=== PATIENT | male | born 1955 | race Caucasian/White ===

== ENCOUNTER → 2024-08-19 | Outpatient (CLI) | payer MEDICARE, MEDICAID, SELFPAY ==
--- NOTE | 2024-08-19 10:22 | XR_ITS ---
Examination: Duplex scan of the lower extremity, unilateral left complete Date and time of exam: August 19, 2024 at 1046 hours INDICATIONS: History left leg DVT post surgical thrombectomy one year ago but persistent swelling in the legs one year Technique: Duplex scan of the extremity veins using B-mode/grayscale imaging and Doppler spectral analysis and color flow Attention is directed to internal echogenicity, compression and augmentation involving these veins, color flow assessment, spectral analysis Findings: Major deep venous structures in the extremity demonstrate normal course and caliber. There is no evidence of deep vein thrombosis. Normal color flow and spectral analysis Impression: Negative for DVT..
== END | disposition home or self-care (01) ==
PROVIDERS: PCP Family Medicine; Referring Provider Internal Medicine; Visit Provider Internal Medicine
DX: M79.606 Pain in leg, unspecified (principal)
CPT/HCPCS: 93971

== ENCOUNTER 2024-09-02 14:42 | Inpatient (IN) | payer MEDICARE, MEDICAID, SELFPAY ==
[2024-09-02] VITALS (26 sets, daily range): BP systolic 104–139; BP diastolic 70–93; PULSE 90–157; RESP 8–23; TEMP 36.4–37.4; O2SAT 90–100; BMI 32.8
--- NOTE | 2024-09-02 14:44 | PC.NURSE ---
patient to er via ems from home for seizure at home, was actively seizing upon arrival, gave 4mg Versed IN and 2mg Versed IV, patient on BMV on arrival, Dr. Whaley at bedside, rt at bedside, patient has nasal trumphet in place. New orders received.
--- NOTE | 2024-09-02 14:47 | XR_ITS ---
Examination: AP chest single view Technique one AP portable semiupright chest single view Exam date and time: September 02, 2024 1556 hours Comparison November 14, 2023 INDICATIONS: Chest pain today, hypoxic respiratory failure postintubation FINDINGS: No significant cardiac enlargement Moderate vascular congestion No aspiration pneumonia Endotracheal tube tip 5.5 cm above paula Orogastric tube tip in the stomach satisfactory position Moderate osteopenia Impression: Moderate vascular congestion No aspiration pneumonia Endotracheal tube tip 5.5 cm above paula
--- NOTE | 2024-09-02 14:47 | EKG_ITS ---
[facility] Test Date: 2024-09-02 Pat Name: SANTIAGO TERRAZAS Department: Room: - Gender: Male Four H Agent: : 1955 Requested By: Igor Whaley Order Number: [id number] Reading MD: Igor Whaley Measurements Intervals Sieper Rate: 115 P: TN: QRS: -7 QRSD: 132 T: 41 QT: 358 QTc: 496 Interpretive Statements ATRIAL FLUTTER/TACHYCARDIA WITH RAPID VENTRICULAR RESPONSE INDETERMINATE AXIS RIGHT BUNDLE BRANCH BLOCK [120+ ms QRS DURATION, UPRIGHT V1, 40+ ms S IN I/aVL/V4/V5/V6] POSSIBLE ANTERIOR MYOCARDIAL INFARCTION , PROBABLY OLD [30 ms Q WAVE IN V3/V4, OR R < 0.2 mV IN V4] Compared to ECG 02/18/2024 21:09:47 Indeterminate axis now present Myocardial infarct finding now present Sinus rhythm no longer present Left-axis deviation no longer present /store/S0/[id number]/ecg/[id number].pdf
--- NOTE | 2024-09-02 14:59 | PD.EDSEIZ ---
ED Seizures RME/HPI General Chief Complaint: Seizure Stated Complaint: SEIZURES Time Seen by Provider: 09/02/24 14:47 Arrival date/time: 09/02/24 14:42 RME / HPI RME / HPI Narrative: 68 year old male with history of CAD s/p PCI, hypertension, h/o hemorrhagic stroke 05/2022, seizures presents to the ED BIBA from home for seizure today. Per medics, family on scene reported finding the patient seizing today, duration unknown. State they administered 4mg IN Versed with no change. Given 2mg IV Versed with improvement. Medics report duration of seizure with them was 8 minutes. On arrival to ED patient is postictal and unable to provide any additional history. Related Data Home Medications ?Medication ?Instructions ?Recorded ?Confirmed amlodipine 5 mg tablet 5 mg PO QDAY 11/16/23 09/02/24 atorvastatin 80 mg tablet 80 mg PO QDAY 11/16/23 09/02/24 baclofen 10 mg tablet 10 mg PO BID 11/16/23 09/02/24 carvedilol 6.25 mg tablet 6.25 mg PO BID PRN elevated blood 11/16/23 09/02/24 pressure cenobamate 50 mg (14)-100 mg (14) 50 - 100 tab PO BID 09/02/24 09/02/24 tablets in a dose pack (Xcopri Titration Pack) divalproex 500 mg tablet,extended 1,000 mg PO BID 09/02/24 09/02/24 release 24 hr Previous Rx's ?Medication ?Instructions ?Recorded apixaban 5 mg tablet (Eliquis) 10 mg (2 x 5 mg) PO BID #28 tabs 02/19/24 Allergies Allergy/AdvReac Type Severity Reaction Status Date / Time No Known Allergies Allergy Verified 05/24/23 13:53 Review of Systems Review of Systems ROS Unobtainable: unobtainable due to mental status Past Medical History Past Medical History NEUROLOGIC: Positive Neurological Disorders (Hemmorhagic stroke), Cerebrovascular Accident, Seizures and Paralysis CARDIAC: Positive Cardiac Disorders, Myocardial Infarction, Coronary Artery Disease, Atherosclerotic Heart Disease, Hypercholesterolemia, Edema and Hypertension GASTROINTESTINAL: Positive Gastrointestinal Disorders, Gastrointestinal Bleed and Ulcer MUSCULOSKELETAL: Positive Musculoskeletal Disorders (dvt to left leg) and Degenerative Disk Disease PSYCHO/SOCIAL: Positive Depression Family History FAMILY HISTORY: Positive Family Cardiac Disorders and Family Cancer Surgical History SURGICAL: Positive Cardiac Surgery, Coronary Artery Bypass Graft, Coronary Stent, Cardiac Catheterization, Angiogram and Neurologic Surgery Social History SMOKING STATUS: Unknown if ever smoked SUBSTANCE USE: does not use ED Exam Narrative Physical exam: Physical Exam:? General:?? ? Patient is brought in by EMS with seizures for 8 minutes prior to arrival evidently got 4 mg Versed intranasal and 2 mg IV per EMS report. The vital signs were reviewed. The patient is not arousable with verbal and painful stimuli but immediately falls back to sleep and becomes inattentive. GCS is 3 on arrival. Patient had a spontaneous respirations that were assisted with [id number] and observe for 5 to 7 minutes after arrival but patient had some apneic pauses during this observation period and we felt it best to intubate since he was recently here for [employer] post seizure activity and this past November . O2 sats are low 90s on nasal cannula Head & Scalp:?? ? Normocephalic, atraumatic. Face:?? ? Appears normal and is without lesions, deformity. No apparent trauma Ears:??? Left external pinna appears normal. Right external pinna appears normal. Eyes:?? ? The sclera is anicteric. The Left and Right Orbit/Lid/Conjunctiva appears normal without swelling, discoloration or injection. Nose: ? ? The nose is without deformity, discharge or tenderness; Throat: ? ? Appears normal.? The mucous membranes are pink and moist without exudates, redness or mass seen.? The tongue appears normal. Neck: The neck is supple and no apparent mass or adenopathy. Chest: The chest wall is normal in size and symmetry and has no chest wall tenderness or crepitus. The patient displays adequate ventilator effort without retractions, accessory muscle use. Patient has adequate air movement bilaterally with no wheezes and no rales. ? Cardiovascular: Regular rate and rhythm; No murmurs, rubs, or gallops; Gastrointestinal: The abdomen appears normal.? No obvious hernias or mass. The abdomen is soft and benign, non-distended, with no pain, no guarding and no rebound tenderness.? Bowel sounds are present and normal sounding.? No CVA tenderness. Genitourinary: No apparent injury or trauma. Back/Spine: No apparent injury or trauma Extremities/Musculoskeletal/lymphatic:? ? ? The bilateral upper and lower extremities are warm. There is no evidence of arterial? insufficiency. There is no evidence of venous insufficiency/edema. The patient is obtunded but displays no obvious focal deficits and spontaneously moves bilateral upper and lower extremities with painful or verbal stimuli There is no apparent, injury or trauma. Skin:? The skin is warm, dry and intact.? No rashes. No petechia. No purpura. No abnormal bruising.? The color is appropriate with no cyanosis. Mental status/Psychiatric: Neurologic Mental status is obtunded no further evaluation can be made not arousal to verbal or knows of no arousable to pain. He is clenching his jaw at times. But no tonic-clonic movements are seen. . Course Quality Measures none Orders Category Date Time Status 24 HR Medical Restraints Q2HR Care 09/02/24 15:11 Active Bedside Blood Glucose NOW Care 09/02/24 14:47 Active Equipment Analyst Q1H Care 09/02/24 15:14 Active EKG (ED ONLY) *Do not use* NOW Care 09/02/24 14:47 Completed Jain [Urinary Catheter] QS Care 09/02/24 15:07 Active Insert NG / OG tube NOW Care 09/02/24 15:06 Active Intubation NOW Care 09/02/24 15:06 Completed Intubation NOW Care 09/02/24 15:[address] head/brain wo con Stat Exams 09/02/24 17:06 Taken EKG (ED Only) Stat Exams 09/02/24 14:47 Draft XR chest 1V portable Stat Exams 09/02/24 14:47 Completed Alcohol, Blood Medical Stat Lab 09/02/24 15:07 Completed Ammonia Stat Lab 09/02/24 15:07 Completed B-Type Natriuretic Peptide Stat Lab 09/02/24 15:07 Completed Blood Culture (Lab) Stat Lab 09/02/24 15:42 Received CBC Stat Lab 09/02/24 15:07 Completed Comprehensive Metabolic Panel Stat Lab 09/02/24 15:07 Completed Drug Screen,Urine Stat Lab 09/02/24 15:20 Completed Lactate (Lactic Acid) Stat Lab 09/02/24 15:07 Results Procalcitonin Stat Lab 09/02/24 15:07 Completed Prothrombin Time with INR Stat Lab 09/02/24 15:07 Completed Sputum Culture and Gram Stain Stat Lab 09/02/24 15:07 Received Troponin I Stat Lab 09/02/24 15:07 Completed Type and Screen Stat Lab 09/02/24 15:33 Completed Urinalysis, C/S if Indicated Stat Lab 09/02/24 15:20 Completed Venous Blood Gas Stat Lab 09/02/24 15:07 Completed LORazepam [Ativan Inj] Med 09/02/24 14:49 Discontinued 1 mg IVP X1 ONE LORazepam [Ativan Inj] Med 09/02/24 14:57 Discontinued 2 mg IVP X1 ONE Midazolam/Ns 100 mg Ivpb [Versed Pf Inj in Ns Premix] Med 09/02/24 15:18 Active 100 mg in 100 ml IV 1 mg/hr Propofol Inj [Diprivan Inj] Med 09/02/24 14:57 Discontinued 100 mg IV X1 ONE Propofol Inj [Diprivan Inj] Med 09/02/24 15:09 Discontinued 100 mg IV X1 ONE Sodium Chloride 0.9% 1000 ml [Ns] 2,000 ml Med 09/02/24 14:47 Active IV 150 mls/hr cefTRIAXone/D5w 1gm IV premix [Rocephin/D5w 1gm IV Med 09/02/24 16:19 Discontinued premix] 50 ml IV X1 fentaNYL 2,500 MCG/250 ML BAG [Sublimaze Inj 2,500 MCG/ Med 09/02/24 15:18 Active 250 ML BAG] 2,500 mcg in 250 ml IV 25 mcg/hr levETIRAcetam INJ [Keppra Inj] Med 09/02/24 14:47 Discontinued 1,000 mg IVP X1 ONE Ventilator [Volume Ventilator] Stat RT 09/02/24 15:16 Active Vital Signs Vital signs: Vital Signs Pulse Rate 157 H 09/02/24 14:44 Respiratory Rate 19 09/02/24 14:44 Blood Pressure 121/77 09/02/24 14:44 Pulse Oximetry (%) 90 L 09/02/24 14:44 Oxygen Delivery Method Nasal Cannula 09/02/24 14:44 Procedures -ED Intubation Time out performed: Yes sedative: other (2mg Versed, 200mg Propofol ) Laryngoscope: Mariee ET Tube Size: 8 ET Tube Uncuffed: No Tube Secured Depth (cm): 22 Tube Secured Location: other (gum) Tube Placement Confirmation: visualized tube passing through cords, equal breath sounds bilaterally, no breath sounds over epigastrium and confirmation by capnometry Patient Tolerated Procedure: well and no complications Intubation Complications: none Seizure MDM Narrative MDM Narrative:: As mentioned above patient was intubated with an 8.0 tube after period of observation to see if he is in a wake up from his seizures. Because of some apneic pauses we decided intubate which was done see the procedure note but he was intubated on the first attempt with a 0.0 tube capnometry response was positive. Breath sounds were heard bilaterally. NG tube was then placed later by a nurse with good position on chest x-ray. The ET tube is also in adequate position at 21 at the corner of the mouth. Because of a history of status epilepticus stroke as the cause of seizures in the past workup for altered mental status was ordered and is pending at 1608 hrs. Nonetheless I contacted Dr. Villalta a critical care doctor discussed the case and let her know the patient on need to be admitted assuming there is no head bleed. At 1608 hrs. the blood gas came back with a pH of 722 pCO2 of 57 consistent with a respiratory acidosis. PT/INR within normal limits. White count is 10.1 hemoglobin is 14.9 lactic acid came back elevated at 4.7. UA and comprehensive metabolic panel is still pending. At [address] is still pending also. At [address] is back but no forceful report by my read shows obvious cephalin malacia from previous hemorrhagic stroke but no obvious acute bleed is present on today's CT. Dr. Villalta was consulted earlier and sent resident down to evaluate this patient pending completion of the workup. Because of the altered mental status post status epilepticus and postictal phase with elevated lactic acid and metabolic acidosis which is probably all presumably secondary to seizures nonetheless cannot exclude an aspiration syndrome and/or infection so we will give a single dose of Rocephin at this time. At [address] Villalta is in the department seeing her patients and will be accepting this patient. Patient is tolerated the ventilator quite well. At this time we do not feel this patient is a sepsis alert as it is clearly status epilepticus with a elevated lactic acid and a second lactic acid is pending and Dr. Villalta is fully aware of this issue. Patient data External records reviewed:: [facility] previous records (I reviewed admission from 11/13/2023 through 11/18/2023 for seizures) and EMS form Clinical information provided by:: EMS Social determinants that could affect healthcare access:: none Patient has the following chronic illnesses:: CAD s/p PCI, hypertension, h/o hemorrhagic stroke 05/2022, seizures How is presenting disease/condition affected by chronic disease/condition?: exacerbated by Evaluation data The following diagnostics were reviewed and interpreted by me:: lab results, radiology exam(s) and EKG tracing(s) (Atrial flutter, rate 115, right bundle branch block) Lab and/or radiology exams considered but not ordered:: None Interpretation Summary: Ordering Physician: Igor Whaley MD Date of Service: 09/02/24 Procedure(s): XR chest 1V portable Accession Number(s): [id number] cc: Joyce Leo; Igor Whaley MD; John Jonas MD~ Examination: AP chest single view Technique one AP portable semiupright chest single view Exam date and time: September 02, 2024 1556 hours Comparison November 14, 2023 INDICATIONS: Chest pain today, hypoxic respiratory failure postintubation FINDINGS: No significant cardiac enlargement Moderate vascular congestion No aspiration pneumonia Endotracheal tube tip 5.5 cm above paula Orogastric tube tip in the stomach satisfactory position Moderate osteopenia Impression: Moderate vascular congestion No aspiration pneumonia Endotracheal tube tip 5.5 cm above paula Dictated By: John Jonas MD Signed By: <Electronically signed by John Jonas MD in OV> 09/02/24 1605 Medications / Prescriptions Medications or Prescriptions considered but not ordered:: None Medication administrations:: Medication Administration History Sodium Chloride (Ns) 2,000 mls @ 150 mls/hr IV .[id number] ONE Stop: 09/03/24 04:06 Last Admin: 09/02/24 15:02 Dose: 150 mls/hr Documented By: JEFF Fentanyl Citrate (Sublimaze Inj 2,500 Mcg/250 Ml Bag) 2,500 mcg in 250 mls @ 2.5 mls/hr IV .Q24H PRN; Protocol PRN Reason: PER PROTOCOL Stop: 09/07/24 15:17 Last Titration: 09/02/24 17:27 Dose: 25 mcg/hr, 2.5 mls/hr Documented By: Titration: 09/02/24 16:27 Dose: 25 mcg/hr, 2.5 mls/hr Documented By: Admin: 09/02/24 15:27 Dose: 25 mcg/hr, 2.5 mls/hr Documented By: JEFF Comments: Patient restless upon starting gtt Midazolam HCl (Versed Pf Inj In Ns Premix) 100 mg in 100 mls @ 1 mls/hr IV .Q24H PRN; Protocol PRN Reason: PER PROTOCOL Stop: 09/07/24 15:17 Last Titration: 09/02/24 17:33 Dose: 1 mg/hr, 1 mls/hr Documented By: Titration: 09/02/24 16:33 Dose: 1 mg/hr, 1 mls/hr Documented By: Admin: 09/02/24 15:33 Dose: 1 mg/hr, 1 mls/hr Documented By: JEFF Comments: Patient restlless upon starting gtt Discontinued Medications Ceftriaxone Sodium/Dextrose (Rocephin/D5w 1gm Iv Premix) 50 mls @ 100 mls/hr IV X1 ONE Stop: 09/02/24 16:48 Last Infusion: 09/02/24 17:00 Dose: Infused Documented By: Admin: 09/02/24 16:28 Dose: 100 mls/hr Documented By: JEFF Levetiracetam (Levetiracetam Inj 100 Mg/Ml Vial 5ml) 1,000 mg IVP X1 ONE Stop: 09/02/24 14:48 Last Admin: 09/02/24 15:02 Dose: 1,000 mg Documented By: JEFF Lorazepam (Lorazepam 2 Mg/Ml Vial) 1 mg IVP X1 ONE Stop: 09/02/24 14:50 Last Admin: 09/02/24 15:19 Dose: Not Given Documented By: JEFF Non-Admin Reason: Cancelled by Provider Lorazepam (Lorazepam 2 Mg/Ml Vial) 2 mg IVP X1 ONE Stop: 09/02/24 14:58 Last Admin: 09/02/24 15:04 Dose: 2 mg Documented By: JEFF Propofol (Propofol Inj 10 Mg/Ml Vial 20 Ml) 100 mg IV X1 ONE Stop: 09/02/24 14:58 Last Admin: 09/02/24 15:05 Dose: 100 mg Documented By: JEFF Propofol (Propofol Inj 10 Mg/Ml Vial 20 Ml) 100 mg IV X1 ONE Stop: 09/02/24 15:10 Last Admin: 09/02/24 15:11 Dose: 100 mg Documented By: KM See above Consultations Consultation(s) initiated? (list below): Yes Consultation #1 (Physician, Specialty, Details): I spoke with assistant professor of biochemistry Dr. Villalta. Discussed patients PMHx, HPI, ED course, exam findings, labs, and radiology results as noted above. Diagnosis Seizure Differential Diagnosis: intractable seizure disorder, focal seizure, generalized seizure, epileptic seizure and status epilepticus Most likely diagnosis given after review of the tests above:: Status epilepticus Acute respiratory insufficiency Respiratory acidosis Elevated lactic acid level Admission Indicated Admission indicated?: indicated Admission Request Was there a request for admission?: Yes Admission Attestation Admission request attestation: Discussed case with [] from Hospitalist service regarding admission. Discussed patients ED course, exam findings, labs, and radiology results. The Hospitalist [agrees,declines] to accept the patient for admission. Disposition Plan Disposition Plan: Admit Critical Care Time Critical Care Time Critical Care Time: Yes Total Critical Care Time (min.): 45 Attestation: The high probability of sudden, clinically significant deterioration in the patient's condition required the highest level of my preparedness to intervene urgently. The services I provided to this patient were to treat and/or prevent clinically significant deterioration. Services included the following: chart data review, reviewing nursing notes and/or old charts, documentation time, data virtualization consultant collaboration regarding findings and treatment options, medication orders and management, direct patient care, vital sign assessments and ordering, interpreting and reviewing diagnostic studies and lab tests. Aggregate critical care time includes only time during which I was engaged in work directly related to the patient's care, as described above, whether at bedside or elsewhere in the Emergency Department. It did not include time spent performing other reported procedures or the services of residents, students, nurses or physician assistants. Discharge Plan Plan Patient Disposition: Admit Acute Care w/in Hospital Disposition Comment: ICU Dr. Villalta Prescriptions/Referrals Prescriptions/Med Rec: No Action atorvastatin 80 mg tablet 80 mg PO QDAY Patient Comments: TAKE 1 TABLET BY MOUTH EVERY DAY carvedilol 6.25 mg tablet 6.25 mg PO BID PRN (Reason: elevated blood pressure) Patient Comments: TAKE 1 TABLET BY MOUTH TWICE A DAY amlodipine 5 mg tablet 5 mg PO QDAY Patient Comments: TAKE 1 TABLET BY MOUTH EVERY DAY baclofen 10 mg tablet 10 mg PO BID Eliquis 5 mg tablet 10 mg PO BID MDD 4 Qty: 28 0RF divalproex 500 mg tablet extended release 24 hr 1,000 mg PO BID Xcopri Titration Pack 50 mg (14)- 100 mg (14) tablets,dose pack 50 - 100 tab PO BID Patient Comments: TAKE BY ORAL ROUTE ONCE DAILY PER PACKAGE DIRECTIONS Referrals: Joyce Leo FNP [Primary Care Provider] - In 1 week Problem List Clinical Impression: Status epilepticus, Acute respiratory insufficiency, Respiratory acidosis, Elevated lactic acid level, Endotracheally intubated Patient/Caregiver Discharge Instructions Print Language: Pashto Stand Alone Forms: Radha Award Info., Patient Portal Info Letter
[2024-09-02] MEDS: SODIUM CHLORIDE 0.9% 1000 ML 2,000 ML 150 ML IV (15:02)
[2024-09-02] MEDS: levETIRAcetam INJ 100 MG/ML VIAL 5ML 1000 MG IVP (15:02)
[2024-09-02] MEDS: LORazepam 2 MG/ML VIAL IVP (15:04)
[2024-09-02] MEDS: PROPOFOL INJ 10 MG/ML VIAL 20 ML 100 MG IV ×2 (15:05→15:11)
--- NOTE | 2024-09-02 15:05 | PC.NURSE ---
Dr. Whaley and rt at bedside to intubate patient
[2024-09-02 15:14] LABS: Base Excess, Venous -6 (-3-3); O2 Saturation, Venous 92 % (96-97); PCO2, Venous 57 mmHg (36-56); PO2, Venous 74 mmHg (15-58); pH, Venous 7.22 (7.33-7.66)
[2024-09-02 15:16] LABS: Basophils % (Auto) 0 % (0-2.5); Eosinophils % (Auto) 0 % (0-10); Hematocrit 43.9 % (41.0-53.0); Hemoglobin 14.9 g/dL (13.5-16.0); Immature Granulocytes % (Auto) 1 % (0-0); Immature Granulocytes Auto 0.06 Thou/mm3 (0.00-0.00); Lymphocytes # (Auto) 1.4 Thou/mm3 (1.0-4.8); Lymphocytes % (Auto) 14 % (10-50); Mean Corpuscular HGB Conc 33.9 g/dl (31.0-37.0); Mean Corpuscular Hemoglobin 31.4 pg (25.0-35.0); Mean Corpuscular Volume 93 fL (80-100); Monocytes # (Auto) 0.9 Thou/mm3 (0.0-0.8); Monocytes % (Auto) 9 % (0-12); Neutrophils # (Auto) 7.7 Thou/mm3 (1.8-7.7); Neutrophils % (Auto) 76 % (37-80); Nucleated Red Blood Cell % 0 /100 WBC (0); Platelet Count 263 Thou/mm3 (140-440); RDW Standard Deviation 46.9 fL (35.1-43.9); Red Blood Count 4.74 Miln/mm3 (4.50-5.90); White Blood Count 10.1 Thou/mm3 (3.8-10.6)
[2024-09-02] MEDS: fentaNYL 2,500 MCG/250 ML BAG 2,500 MCG/250 ML BAG IV (15:27)
[2024-09-02] MEDS: MIDAZOLAM/NS 100 MG IVPB 100 MG/100 ML BAG IV (15:33)
[2024-09-02 15:40] LABS: Ammonia 41 uMol/L (11-32); B-Type Natriuretic Peptide 25 pg/mL (0-100)
[2024-09-02 15:44] LABS: Collection Type, Urine Clean Catch; Squamous Epithelial Cell,Urine 0 /hpf (0-5)
[2024-09-02 15:44] LABS: Lactate (Lactic Acid) 4.7 mMol/L (0.4-2.0)
[2024-09-02 15:45] LABS: Prothrombin Time 11.3 Seconds (9.0-12.2)
--- NOTE | 2024-09-02 16:00 | PC.NURSE ---
Patients neice at bedside speaking with Dr. Whaley and intensivists team regarding patient.
[2024-09-02 16:01] LABS: Bilirubin,Urine Negative (Negative); Blood,Urine Negative (Negative); Clarity,Urine Clear (Clear/Hazy); Color,Urine Lt-Yellow (Lt Yel-Yel); Culture Indicated,Urine Not Indicated; Glucose, Urine Negative (Negative); Ketones,Urine Negative (Negative); Leukocyte Esterase,Urine Negative (Negative); Nitrite,Urine Negative (Negative); PH,Urine 6.5 (5.0-7.0); Protein,Urine Negative (Neg - Trace); RBC,Urine 1 /hpf (0-3); Urobilinogen,Urine Negative mg/dL (0.0-1.0); WBC,Urine 1 /hpf (0-5)
[2024-09-02 16:09] LABS: Amphetamine/Methamp Scrn,U Negative (Negative); Barbiturate Screen,Urine Negative (Negative); Benzodiazepines Screen,Urine Negative (Negative); Benzoylecgonine Screen, Ur Negative (Negative); Fentanyl Screen,Urine Negative (Negative); Opiate Screen,Urine Negative (Negative); THC Screen,Urine Negative (Negative)
[2024-09-02 16:17] LABS: Alanine Aminotransferase 23 U/L (10-49); Albumin, Serum 4.3 gm/dL (3.4-4.8); Albumin/Globulin Ratio 1.4 (1.2-2.2); Alcohol, Blood Medical < 3.0 mg/dL (0-10.0); Alkaline Phosphatase 79 U/L (46-116); Anion Gap 12 (7-16); Aspartate Amino Transferase 22 U/L (0-34); BUN/Creatinine Ratio 13 Ratio (12-20); Bilirubin,Total 0.4 mg/dL (0.3-1.2); Blood Urea Nitrogen 16 mg/dL (9-23); Calcium 8.9 mg/dL (8.3-10.6); Calcium (Corrected) 8.9 mg/dL (8.5-10.1); Carbon Dioxide 22.7 mMol/L (20.0-31.0); Chloride 104 mMol/L (98-107); Creatinine (Component) 1.2 mg/dL (0.6-1.3); Estimated Creatinine Clearance 75.2 mL/min (>60); Globulin 3.1 gm/dL (2.3-3.5); Glucose 133 mg/dL (74-106); Osmolality,Calculated 280 (275-295); Potassium 4.4 mMol/L (3.4-5.1); Procalcitonin 0.07 ng/ml (0.0-0.49); Sodium 139 mMol/L (136-145); Total Protein 7.4 gm/dL (5.7-8.2); Troponin I < 0.020 ng/mL (0.0-0.045); eGFR > 60 See Note
[2024-09-02] MEDS: cefTRIAXone/D5w 1gm IV premix 50 ML IV (16:28)
--- NOTE | 2024-09-02 17:06 | XR_ITS ---
Examination: CT brain head without contrast. 2-D sagittal coronal reconstructions Date and time of exam: September 02, 2024 1756 hrs. Comparison March 10, 2024 Indications: Loss of consciousness today after seizure, history hemorrhagic stroke May 2024 CTDI: vol (mGy):50.5 DLP: (mGycm):1065 Technique: Multiple CT axial sections of the brain have been obtained, 5 mm slice thickness. Contrast has not been administered. 2-D sagittal, coronal reconstructions have been obtained Low dose protocols were performed. One or more of the following dose reduction techniques were used; automated exposure control, adjustment of the mA and/or KV according to patient size, use of iterative reconstruction technique. Findings: Left posterior craniotomy defect with adjacent encephalomalacia in the posterior left parietal lobe Mild ventricular enlargement No mass effect upon the ventricular system No interval acute hemorrhage or mass effect No cranial vault fracture Impression: No interval acute hemorrhage mass effect or midline shift Given the patient's presentation, consider brain MRI MRA without contrast, stroke protocol, follow-up
[2024-09-02 18:09] LABS: Reflex Lactate? Y
[2024-09-02 18:25] LABS: Lactic Acid, 3 HR 3.2 mMol/L (0.4-2.0)
[2024-09-02 18:50] LABS: Creatine Kinase 164 U/L (34-171)
--- NOTE | 2024-09-02 18:55 | ECHO_ITS ---
Transthoracic Echo Report Ht (in): 71 Wt (lb): 235 Exam Location: Echo Lab Status: Emergency Sales Assistant: Ynes Berrios Indications: Procedure Performed: BP: 110 / 68 HR: 94 Technical Quality: Technically difficult study MEASUREMENTS (Male / Female) Normal Values 2D ECHO LV Diastolic Diameter PLAX 4.5 cm 4.2 - 5.9 / 3.9 - 5.3 cm LV Systolic Diameter PLAX 2.8 cm IVS Diastolic Thickness 1.0 cm 0.6 - 1.0 / 0.6 - 0.9 cm LVPW Diastolic Thickness 0.8 cm 0.6 - 1.0 / 0.6 - 0.9 cm LV Relative Wall Thickness 0.4 LVOT Diameter 2.0 cm LA Volume Index 10.2 cm?/m? 16 - 28 cm?/m? M-MODE Aortic Root Diameter MM 2.5 cm LA Systolic Diameter MM 2.6 cm LA Ao Ratio MM 1.0 AV Cusp Separation MM 1.8 cm DOPPLER AV Peak Velocity 121.0 cm/s AV Peak Gradient 5.9 mmHg AV Mean Gradient 3.0 mmHg AV Velocity Time Integral 20.4 cm LVOT Peak Velocity 103.0 cm/s LVOT Peak Gradient 4.2 mmHg LVOT Velocity Time Integral 17.9 cm LVOT Cardiac Index 2255.9 cm?/min?m? AV Area Cont Eq vti 2.8 cm? AV Area Cont Eq pk 2.7 cm? MV Area PHT 6.3 cm? Mitral E Point Velocity 41.2 cm/s Mitral A Point Velocity 71.3 cm/s Mitral E to A Ratio 0.6 LV E' Lateral Velocity 7.9 cm/s Mitral E to LV E' Lateral Ratio 5.2 LV E' Septal Velocity 3.6 cm/s Mitral E to LV E' Septal Ratio 11.5 FINDINGS Left Ventricle Normal left ventricular size, wall thickness, systolic function with no obvious regional wall motion abnormalities. Normal left ventricular diastolic filling pattern for age. The ejection fraction is v isually estimated at 65%. Right Ventricle The right ventricle is normal in size and systolic function. Possible Fischer sign in the RV. Left Atrium The left atrium is normal by two-dimensional, color flow and Doppler imaging with no structural abnormalities, no thrombus formation present. Right Atrium The right atrium is normal by two-dimensional imaging, color flow and Doppler imaging with no struct ural abnormalities, no thrombus formation present. Atrial Septum The interatrial septum appears normal with no evidence of a shunt. Aorta The aorta is normal by two-dimensional, color flow and Doppler interrogation. Mitral Valve The mitral valve is normal by two-dimensional, color flow and Doppler interrogation. There is no sig nificant mitral valve regurgitation, stenosis or prolapse. Aortic Valve The aortic valve is trileaflet and normal by two-dimensional, color flow and Doppler interrogation. There is no significant aortic valve regurgitation. Tricuspid Valve The tricuspid valve is normal by two-dimensional, color flow and Doppler interrogation. There is no significant tricuspid valve regurgitation. Pulmonic Valve The pulmonic valve is not well visualized. There is no significant pulmonic valve regurgitation. Vessels The pulmonary artery appears normal. The inferior vena cava pulmonary and hepatic veins appear arnel l. Pericardium The pericardium is normal by two-dimensional imaging. There is no significant pericardial effusion. CONCLUSIONS Indication: Bilateral LE Edema Normal LV size and wall thickness. Estimated EF 65%. Grade I diastolic dysfunction. RV is mildly enlarged in size with normal systolic function. Possible Fischer sign in the RV. Nicol Cabrera (Electronically Signed) Final Date: 04 September 2024 10:18
--- NOTE | 2024-09-02 19:03 | ESHP_ITS ---
<Statement entered by Carlos Landeros DO - 09/02/24 21:55> Senior attestation: Patient was examined and case was reviewed with team including attending physician. Note reviewed, I agree with most of its contents and agree with the patient's care. In summary, patient is a 68 year old male with history of coronary artery disease s/p stent, hemorrhagic CVA in 2021, seizures, hypertension and DVT who presented to the ED with concerns of seizure, was intubated in ED by time of examination. Per patient's niece, patient was noted to have seized with generalized convulsing today while sitting on a rocking chair, was intubated in ED for airway protection. Of note, patient has not had his seizure medications (Xcopri) for 4 days due to pharmacy refill issues. Given concerns of status epilepticus and s/p intubation, patient will be admitted to the ICU for further evaluation and management. Will stop versed drip and continue home seizure medications Xcopri and depakote, will adjust RASS goal to 0 with goal of weaning sedation overnight. If mentation does not improve tomorrow, will pursue EEG, neurology has been consulted. Given concerns of 1+ edema, will order echo. Will also advance ET 3 cm and repeat CXR to assess for proper positioning.Will resume eliquis 5mg BID for patients history of atrial fibrillation and recent DVT. Carlos Landeros DO PGY-3 Documentation for date of: 09/02/24 HPI History of Present Illness History of present illness: Mr. Ramirez is a 68-year-old male with past medical history of coronary artery disease status post stent 8 to 9 years ago, hemorrhagic CVA in 2021, seizures, hypertension and DVT who presented to [facility] on 09/02/2024 with chief complaints of seizure. On presentation patient is unable to provide history, per patient's niece at bedside patient was sitting in rocking chair earlier today when he started having a seizure with generalized convulsing of both upper and lower limbs,, patient being unresponsive with seizure-like activity and rolling of eyes upwards for unknown duration, patient's grand nephew called EMS who witnessed seizure activity on arrival, per EMS patient had 8-minute of seizure activity and was given 4 mg Versed intranasally and 2 mg IV, no seizure activity was noted in ED. Patient had no oral trauma, did have micturition, was unarousable in ED with GCS of 3 hence patient was intubated for airway protection. Per patient's niece patient has history of convulsive seizures with movement of both upper and lower limbs, also has episodes of staring into blank space, and follows up regularly with neurologist Dr. Anthony. Patient was unable to take his medication Xcopri for about 4 days prior to the episode due to issues with refills from pharmacy. Per patient's niece patient also had a recent DVT for which she was on treatment with Eliquis, and follows with Dr. Cabrera outpatient. Otherwise she reports patient was in good health and is compliant with medications, other than being tired for the last couple of days had no current complaints. ED Course: ED Vitals: On presentation to ED BP 121/77, P157, RR 19, temp 99.3, O2 sat 90 on 100% nasal cannula ED Labs: ED labs on presentation significant for VBG pH 7.22, pCO2 57 glucose 133, lactate 4.7, ammonia 41 ED Imaging:Chest x-ray in ED significant for moderate vascular congestion, no aspiration pneumonia, ET tube noted 5.5 cm above [address] and CT scan of head shows no interval acute hemorrhage mass effect or midline shift EKG significant for tachycardia QTc 496 ED Treatment:Patient was started on 2 L NS 150 cc/h, given Keppra 1000 mg IVP x 1, Ativan 2 mg IVP x 1, propofol 200 mg twice, Ativan 1 mg IVP x 1 was started on fentanyl drip and Versed drip and was given ceftriaxone x 1 patient intubated in ED due to concern of GCS of 3 and airway protection Review of Systems Review of Systems ROS Unobtainable: unobtainable due to mental status and due to endotracheal tube Exam Vital Signs Temp Pulse Resp BP Pulse Ox O2 Del Method FiO2 99.2 F 104 H 20 137/85 H 97 Mechanical Ventilation 50 09/02/24 18:10 09/02/24 18:15 09/02/24 18:10 09/02/24 18:10 09/02/24 18:10 09/02/24 18:10 09/02/24 17:36 Narrative Exam Physical Exam General: 68-year-old male, intubated and sedated, lying in bed HEENT: Normocephalic, atraumatic, mucous membranes moist. ET, OG tube noted. Heart: Regular rate and rhythm, no murmurs. Lungs: Coarse breath sounds heard bilaterally, on mechanical ventilation. Abdomen: Soft, distended, nontender, positive bowel sounds. ?No guarding or rebound tenderness. Neurologic: GCS 3T, intubated and sedated Extremities: 1+ bilateral lower extremity edema Skin: Redness noted in left inguinal region and scrotum Results: Labs 09/03/24 04:35 09/03/24 04:35 Labs: Short CBC 09/02/24 Range/Units 15:07 WBC 10.1 (3.8-10.6) Thou/mm3 Hgb 14.9 (13.5-16.0) g/dL Hct 43.9 (41.0-53.0) % Plt Count 263 (140-440) Thou/mm3 BMP 09/02/24 15:07 Sodium 139 Potassium 4.4 Chloride 104 Carbon Dioxide 22.7 BUN 16 Creatinine 1.2 Glucose 133 H Calcium 8.9 Cardiac Enzymes 09/02/24 09/02/24 Range/Units 15:07 18:20 Total Creatine Kinase 164 (34-171) U/L Troponin I < 0.020 (0.0-0.045) ng/mL Liver Function 09/02/24 Range/Units 15:07 Total Bilirubin 0.4 (0.3-1.2) mg/dL AST 22 (0-34) U/L ALT 23 (10-49) U/L Alkaline Phosphatase 79 (46-116) U/L Albumin 4.3 (3.4-4.8) gm/dL Urine 09/02/24 Range/Units 15:20 Urine Color Lt-Yellow (Lt Yel-Yel) Urine Clarity Clear (Clear/Hazy) Urine pH 6.5 (5.0-7.0) Ur Specific [place] 1.020 (1.001-1.035) Urine Protein Negative (Neg - Trace) Urine Glucose (UA) Negative (Negative) ABG Interpretation ABG results: 09/02/24 15:07 VBG pH 7.22 L VBG pCO2 57 H VBG pO2 74 H VBG Base Excess -6 L Quality Measures Quality Measures none Advance care planning discussed with:: patient and legal surragate Medications Home Medications and Allergies Home Medications ?Medication ?Instructions ?Recorded ?Confirmed ?Type amlodipine 5 mg tablet 5 mg PO QDAY 11/16/23 09/02/24 History atorvastatin 80 mg tablet 80 mg PO QDAY 11/16/23 09/02/24 History baclofen 10 mg tablet 10 mg PO BID 11/16/23 09/02/24 History carvedilol 6.25 mg tablet 6.25 mg PO BID PRN elevated blood 11/16/23 09/02/24 History pressure cenobamate 50 mg (14)-100 mg (14) 50 - 100 tab PO BID 09/02/24 09/02/24 History tablets in a dose pack (Xcopri Titration Pack) divalproex 500 mg tablet,extended 1,000 mg PO BID 09/02/24 09/02/24 History release 24 hr Allergies Allergy/AdvReac Type Severity Reaction Status Date / Time No Known Allergies Allergy Verified 05/24/23 13:53 Visit Medications Acetaminophen (Acetaminophen 325 Mg Tablet) 650 mg PO Q6H PRN PRN Reason: Fever >101.5 Stop: 10/02/24 18:50 Sodium Chloride (Ns) 2,000 mls @ 150 mls/hr IV .[id number] ONE Stop: 09/03/24 04:06 Last Admin: 09/02/24 15:02 Dose: 150 mls/hr Midazolam HCl (Versed Pf Inj In Ns Premix) 100 mg in 100 mls @ 1 mls/hr IV .Q24H PRN; Protocol PRN Reason: PER PROTOCOL Stop: 09/07/24 15:17 Last Titration: 09/02/24 18:33 Dose: 1 mg/hr, 1 mls/hr Fentanyl Citrate (Sublimaze Inj 2,500 Mcg/250 Ml Bag) 2,500 mcg in 250 mls @ 2.5 mls/hr IV .Q24H PRN; Protocol PRN Reason: PER PROTOCOL Stop: 09/07/24 15:17 Lorazepam (Lorazepam 2 Mg/Ml Vial) 2 mg IVP X1 PRN PRN Reason: Siezures Stop: 09/07/24 18:59 Non-Formulary Medication (Cenobamate [Xcopri Titration Pack]) 50 - 100 tab PO BID EMMANUEL Stop: 10/02/24 20:59 Non-Formulary Medication (Divalproex) 1,000 mg PO BID EMMANUEL Stop: 10/02/24 20:59 Pantoprazole Sodium (Pantoprazole Inj 40 Mg Vial) 40 mg IVP QDAY EMMANUEL Stop: 10/02/24 18:59 Sennosides (Senna Tablet) 1 tab PO QDAY EMMANUEL; Protocol Stop: 10/03/24 08:59 Discontinued Medications Fentanyl Citrate (Sublimaze Inj 2,500 Mcg/250 Ml Bag) 2,500 mcg in 250 mls @ 2.5 mls/hr IV .Q24H PRN; Protocol PRN Reason: PER PROTOCOL Stop: 09/07/24 15:17 Last Titration: 09/02/24 18:27 Dose: 250 mcg/hr, 25 mls/hr Ceftriaxone Sodium/Dextrose (Rocephin/D5w 1gm Iv Premix) 50 mls @ 100 mls/hr IV X1 ONE Stop: 09/02/24 16:48 Last Infusion: 09/02/24 17:00 Dose: Infused Levetiracetam (Levetiracetam Inj 100 Mg/Ml Vial 5ml) 1,000 mg IVP X1 ONE Stop: 09/02/24 14:48 Last Admin: 09/02/24 15:02 Dose: 1,000 mg Lorazepam (Lorazepam 2 Mg/Ml Vial) 1 mg IVP X1 ONE Stop: 09/02/24 14:50 Last Admin: 09/02/24 15:19 Dose: Not Given Lorazepam (Lorazepam 2 Mg/Ml Vial) 2 mg IVP X1 ONE Stop: 09/02/24 14:58 Last Admin: 09/02/24 15:04 Dose: 2 mg Propofol (Propofol Inj 10 Mg/Ml Vial 20 Ml) 100 mg IV X1 ONE Stop: 09/02/24 14:58 Last Admin: 09/02/24 15:05 Dose: 100 mg Propofol (Propofol Inj 10 Mg/Ml Vial 20 Ml) 100 mg IV X1 ONE Stop: 09/02/24 15:10 Last Admin: 09/02/24 15:11 Dose: 100 mg Assessment & Plan Plan Assessment and plan: Summary: Mr. Ramirez is a 68-year-old male with past medical history of coronary artery disease status post stent 8 to 9 years ago, hemorrhagic CVA in 2021, seizures, hypertension and DVT who presented to [facility] on 09/02/2024 with chief complaints of seizure. Patient admitted to hospital for further workup for seizures, status epilepticus, status post intubation for airway protection . Neurological: # Seizures # Status epilepticus Differential diagnosis: Generalized tonic-clonic seizures, absence seizures, partial seizure Patient has history of seizure on valproate and Xcopri outpatient for management, follows neurologist Dr. Anthony Patient was unable to take his medication Xcopri for about 4 days due to nonavailability at pharmacy Patient had a witnessed seizure by family earlier this morning today, witnessed seizure activity for 8 minutes by EMS, tonic-clonic movements of bilateral upper and lower extremities noted per family. Patient was given about 8 mg of Versed by EMS. In ED no seizure activity noted, patient intubated due to concern of airway protection, GCS 3 and started on IV fentanyl and IV Versed Plan: -Discontinue Versed -Resume home valproate and Xcopri -As needed benzodiazepine for seizure/seizure-like activity -Consult neurology, appreciate recommendations -Neurochecks every hour -Seizure precautions -Aspiration precautions, HOB more than 30 degrees -Ordered CK -On Fentanyl, RAAS Goal 0 Cardiovascular: #Hypertension #Hyperlipidemia #History of NC, coronary artery disease status post PCI Patient on amlodipine 5 mg at home, atorvastatin 40 mg at home Plan: Resume atorvastatin Monitor blood pressure #Personal history of atrial fibrillation Patient not on any medication for A-fib per niece, pending med reconciliation Plan: Continue telemonitoring Eliquis 5mg BID #Bilateral lower extremity edema, 1+ Patient has no history of CHF Plan: Ordered echocardiogram Pulmonary: #On mechanical ventilation status postintubation 09/02 for airway protection Currently patient's tidal volume 475, PEEP 5, respiratory rate 20, unable to protect airway currently on sedation Plan: Continue mechanical ventilation Goal tidal volume 6 to 8 mL/kg, goal for 450-600 currently on goal Ordered ABG stat, will adjust ventilation settings accordingly GI: #Distended abdomen Significant distention of abdomen noted Plan: -Will continue to monitor #Hyperammonemia No history of liver disease, currently AST/ALT and bilirubin normal, will follow GI prophylaxis: IV Protonix daily Renal/: #Metabolic acidosis #Lactic acidosis Secondary to seizure Patient was given 1 L NS at 150 cc/h Plan: Monitor lactate #Scrotal and inguinal redness Per patient's niece, patient had a vascular procedure recently Will continue to monitor Endocrine: #Hyperglycemia Patient's fingerstick blood glucose 148, blood glucose on CMP 133 Plan: Follow A1c in a.m. Infectious disease: Patient was given ceftriaxone x 1 in ED, will follow blood cultures. Integumentary: #Recent history of DVT Patient was recently started on Eliquis 5 mg twice daily by cardiology per med review-08/25 Will resume Eliquis 5 twice daily DVT prophylaxis: Eliquis GI prophylaxis: IV Protonix Diet: N.p.o. Lines: Peripheral IV Code status: Full code, per patient's niece patient has a POLST form, requested patient to bring a copy. Patient's surrogate decision maker currently Dara (patient's niece) [phone], primary decision maker Gema Warner ([phone]) Case discussed with Attending Dr. Villalta and Dr. Landeros PGY3. Maikol Wilder PGY1 Disclaimer: This note was dictated by speech recognition. Minor errors in digital recruiter may be present due to voice recognition software. Attending Provider Attestation/Addendum Patient seen and examined with resident. Agree with above. In brief this is 68-year-old male who was brought to the ER for seizures. The patient has a known history of seizure however has not taken his medication for the last for 5 days due to inability to obtain it from the pharmacy. Upon arrival to the ER he had received 6 to 8 mg of Ativan and was obtunded with respiratory depression therefore decision was made to intubate him. He was intubated for airway protection and brought to the ICU. On physical exam his mucosa was hydrated ET tube was in place lung sounds were clear heart rate was regular and rhythmic abdomen was soft. He was restarted on his seizure medications and vent was adjusted. Case discussed with ICU team Labs, imaging and records reviewed Approximately 72 cc minutes required for evaluation, exam, review, intervention, discussion of formulation of plan of care for this critically ill patient with acute respiratory failure at high risk for further and ongoing decline
[2024-09-02] MEDS: PANTOPRAZOLE INJ 40 MG VIAL IVP (20:05)
[2024-09-02] MEDS: LACOSAMIDE INJ 200 MG/20 ML VIAL IVP (21:24)
[2024-09-02] MEDS: APIXABAN 2.5 MG TABLET 5 MG PO (21:30)
[2024-09-02] MEDS: DIVALPROEX SOD DR 500 MG TABLET.DR 1000 MG PO (22:16)
[2024-09-02 22:20] LABS: Lactate (Lactic Acid) 2.1 mMol/L (0.4-2.0)
[2024-09-02 22:41] LABS: Base Excess -1 (-3-3); HCO3 24 mEq/L (20-26); Inspired Oxygen, FIO2 50 %; O2 Saturation 99 % (91-98); PCO2 40 mmHg (32.0-48.0); PO2 102 mmHg (83-108); pH, Arterial 7.39 (7.35-7.45)
[2024-09-02 22:43] LABS: Allen Test Performed/OK; Puncture Site Right Radial
[2024-09-03] VITALS (28 sets, daily range): BP systolic 97–121; BP diastolic 65–84; PULSE 78–104; RESP 7–24; TEMP 36.6–37.2; O2SAT 94–100; BMI 28.8
[2024-09-03 01:17] LABS: Reflex Lactate? Y
[2024-09-03 04:17] LABS: Base Excess 2 (-3-3); HCO3 27 mEq/L (20-26); Inspired Oxygen, FIO2 45 %; O2 Saturation 90 % (91-98); PCO2 44 mmHg (32.0-48.0); PO2 99 mmHg (83-108)
[2024-09-03 04:21] LABS: Allen Test Performed/OK; Puncture Site Right Radial
[2024-09-03 04:58] LABS: Basophils % (Auto) 0 % (0-2.5); Eosinophils % (Auto) 0 % (0-10); Hematocrit 39.2 % (41.0-53.0); Hemoglobin 13.6 g/dL (13.5-16.0); Immature Granulocytes % (Auto) 0 % (0-0); Immature Granulocytes Auto 0.02 Thou/mm3 (0.00-0.00); Lymphocytes # (Auto) 2.3 Thou/mm3 (1.0-4.8); Lymphocytes % (Auto) 23 % (10-50); Mean Corpuscular HGB Conc 34.7 g/dl (31.0-37.0); Mean Corpuscular Hemoglobin 31.9 pg (25.0-35.0); Mean Corpuscular Volume 92 fL (80-100); Monocytes # (Auto) 1.4 Thou/mm3 (0.0-0.8); Monocytes % (Auto) 14 % (0-12); Neutrophils # (Auto) 6.1 Thou/mm3 (1.8-7.7); Neutrophils % (Auto) 62 % (37-80); Nucleated Red Blood Cell % 0 /100 WBC (0); Platelet Count 197 Thou/mm3 (140-440); RDW Standard Deviation 47.1 fL (35.1-43.9); Red Blood Count 4.27 Miln/mm3 (4.50-5.90); White Blood Count 9.9 Thou/mm3 (3.8-10.6)
[2024-09-03] MEDS: LORazepam 2 MG/ML VIAL IVP (04:58)
--- NOTE | 2024-09-03 05:00 | XR_ITS ---
Examination: AP chest single view TECHNIQUE: AP portable semiupright chest single view Exam date and time: September 03, 2024 0519 hours Comparison September 02, 2024 INDICATIONS: Hypoxic respiratory failure, postintubation FINDINGS: Prominence left ventricle No lobar pneumonia or pulmonary edema The orogastric tube is in the stomach, the tip is below the level film Endotracheal tube tip 5 cm above paula IMPRESSION: Endotracheal tube tip 5 cm above paula No pneumonia or pulmonary edema
[2024-09-03 05:13] LABS: Alanine Aminotransferase 20 U/L (10-49); Albumin, Serum 3.9 gm/dL (3.4-4.8); Albumin/Globulin Ratio 1.6 (1.2-2.2); Alkaline Phosphatase 69 U/L (46-116); Anion Gap 9 (7-16); Aspartate Amino Transferase 20 U/L (0-34); BUN/Creatinine Ratio 16 Ratio (12-20); Bilirubin,Total 0.5 mg/dL (0.3-1.2); Blood Urea Nitrogen 16 mg/dL (9-23); Calcium 8.6 mg/dL (8.3-10.6); Calcium (Corrected) 8.7 mg/dL (8.5-10.1); Carbon Dioxide 26.5 mMol/L (20.0-31.0); Cardiac Risk Estimate 2.3 RATIO (4.0-6.7); Chloride 105 mMol/L (98-107); Cholesterol 140 mg/dL (132-200); Creatine Kinase 134 U/L (34-171); Globulin 2.5 gm/dL (2.3-3.5); Glucose 95 mg/dL (74-106); HDL Cholesterol 61 mg/dL (40-60); LDL Cholesterol,Calculated 60 mg/dL (0-130); Magnesium 1.8 mg/dL (1.6-2.6); Osmolality,Calculated 280 (275-295); Phosphorous 3.7 mg/dL (2.4-5.1); Potassium 4.2 mMol/L (3.4-5.1); Sodium 140 mMol/L (136-145); Total Protein 6.4 gm/dL (5.7-8.2); Triglycerides 94 mg/dL (30-150); eGFR > 60 See Note
[2024-09-03 05:20] LABS: Glucose Estimated Average 114 mg/dL (80-131); Hemoglobin A1C 5.6 % Hgb (4.8-6.0)
[2024-09-03 05:32] LABS: Ammonia < 10 uMol/L (11-32)
[2024-09-03] MEDS: APIXABAN 2.5 MG TABLET 5 MG PO (08:20)
[2024-09-03] MEDS: PANTOPRAZOLE INJ 40 MG VIAL IVP (08:20)
[2024-09-03] MEDS: SENNA TABLET 1 TAB PO (08:21)
[2024-09-03] MEDS: LACOSAMIDE INJ 200 MG/20 ML VIAL 100 MG IVP ×2 (08:21→20:46)
[2024-09-03] MEDS: VALPROATE SOD INJ 500 MG in SODIUM CHLORIDE 0.9% 50 ML 50 MG IV ×3 (10:29→20:46)
--- NOTE | 2024-09-03 12:48 | ESPR_ITS ---
<Statement entered by Carlos Landeros DO - 09/03/24 20:56> Senior attestation: Patient was examined and case was reviewed with team including attending physician. Note reviewed, I agree with most of its contents and agree with the patient's care. Overnight seizure episode was noted ~ 8 seconds, treated with ativan. Vimpat was started overnight following neurology recs as patient's home Xcorpi was unavailable, home depakote ER unable to be given through OG tube, depakote switched to IV dose. Sedation was weaned, SBT completed, patient extubated without complications today. Patient stable for downgrade to tele floors, advise resuming diet once speech therapy has evaluated patient. Eliquis continued given recent DVT and possible atrial fibrillation history. Carlos Landeros DO PGY-3 Documentation for date of: 09/03/24 Subjective Subjective Interval history: Mr. Ramirez is a 68-year-old male with past medical history of coronary artery disease status post stent 8 to 9 years ago, hemorrhagic CVA in 2021, seizures, hypertension and DVT who presented to [facility] on 09/02/2024 with chief complaints of seizure. On presentation patient is unable to provide history, per patient's niece at bedside patient was sitting in rocking chair earlier today when he started having a seizure with generalized convulsing of both upper and lower limbs,, patient being unresponsive with seizure-like activity and rolling of eyes upwards for unknown duration, patient's grand nephew called EMS who witnessed seizure activity on arrival, per EMS patient had 8-minute of seizure activity and was given 4 mg Versed intranasally and 2 mg IV, no seizure activity was noted in ED. Patient had no oral trauma, did have micturition, was unarousable in ED with GCS of 3 hence patient was intubated for airway protection. Per patient's niece patient has history of convulsive seizures with movement of both upper and lower limbs, also has episodes of staring into blank space, and follows up regularly with neurologist Dr. Anthony. Patient was unable to take his medication Xcopri for about 4 days prior to the episode due to issues with refills from pharmacy. Per patient's niece patient also had a recent DVT for which she was on treatment with Eliquis, and follows with Dr. Cabrera outpatient. Otherwise she reports patient was in good health and is compliant with medications, other than being tired for the last couple of days had no current complaints. 09/03/24: Patient seen and examined at bedside, earlier this morning patient had a seizure-like episode about 8 seconds witnessed by nurse, patient was given 2 mg of Ativan. Overnight patient was started on lacosamide loading dose as cenobamate unavailable at pharmacy per neurology recommendations. This morning patient's valproate switched to IV, started on 500 every 6 hours, was on low- dose fentanyl his morning, responsive, follows commands, GCS 11T. To wean patient off sedation, started on pressure support, if patient tolerates spontaneous breathing trial well, patient will be extubated. Will continue to monitor for seizure/seizure-like activity, will continue Eliquis treatment. Otherwise labs unremarkable, patient has no complaints. Exam Vital Signs Temp Pulse Resp BP Pulse Ox O2 Del Method FiO2 97.9 F 86 12 108/66 95 Mechanical Ventilation 30 09/03/24 07:00 09/03/24 11:00 09/03/24 11:00 09/03/24 11:00 09/03/24 11:00 09/02/24 18:10 09/03/24 10:28 Narrative Exam Physical Exam General: 68-year-old male, intubated and lethargic, lying in bed HEENT: Normocephalic, atraumatic, mucous membranes moist. ET, OG tube noted. Heart: Regular rate and rhythm, no murmurs. Lungs: Bilateral breath sounds heard, on mechanical ventilation. Abdomen: Soft, distended, nontender, positive bowel sounds. ?No guarding or rebound tenderness. Neurologic: GCS 11T, intubated follows commands, at baseline patient has right- sided deficits of weakness Extremities: 1+ bilateral lower extremity edema Skin: Redness noted in left inguinal region and scrotum Objective Labs 09/03/24 04:35 09/03/24 04:35 Labs: Laboratory Results - last 24 hr 09/02/24 09/02/24 09/02/24 15:07 15:20 15:33 WBC 10.1 RBC 4.74 Hgb 14.9 Hct 43.9 MCV 93 MCH 31.4 MCHC 33.9 RDW Std Deviation 46.9 H Plt Count 263 Neut % (Auto) 76 Lymph % (Auto) 14 Travis % (Auto) 9 Eos % (Auto) 0 Baso % (Auto) 0 Neut # (Auto) 7.7 Lymph # (Auto) 1.4 Travis # (Auto) 0.9 H Eos # (Auto) 0.0 Baso # (Auto) 0.0 Immature Gran # (Auto) 0.06 H Absolute Nucleated RBC 0.00 Immature Gran % 1 H Nucleated RBC % 0 PT 11.3 INR 1.0 Puncture Site ABG pH ABG pCO2 ABG pO2 ABG HCO3 ABG O2 Saturation ABG Base Excess VBG pH 7.22 L VBG pCO2 57 H VBG pO2 74 H VBG O2 Sat (Júnior) 92 L VBG Base Excess -6 L FiO2 Sodium 139 Potassium 4.4 Chloride 104 Carbon Dioxide 22.7 Anion Gap 12 BUN 16 Creatinine 1.2 Estim Creat Clear Calc 75.2 eGFR > 60 BUN/Creatinine Ratio 13 [address]ucose [address] Glu mg/dL Hemoglobin A1c Calculated Osmolality 280 Lactic Acid 4.7 H* Calcium 8.9 Corrected Calcium 8.9 Phosphorus Magnesium Total Bilirubin 0.4 AST 22 ALT 23 Alkaline Phosphatase 79 Ammonia 41 H Total Creatine Kinase Troponin I < 0.020 B-Natriuretic Peptide 25 Total Protein 7.4 Albumin 4.3 Globulin 3.1 Albumin/Globulin Ratio 1.4 Triglycerides Cholesterol LDL Cholesterol, Calc HDL Cholesterol Cholesterol/HDL Ratio Procalcitonin 0.07 Ur Collection Type Clean Catch Urine Color Lt-Yellow Urine Clarity Clear Urine pH 6.5 Ur Specific [place] 1.020 Urine Protein Negative Urine Glucose (UA) Negative Urine Ketones Negative Urine Blood Negative Urine Nitrite Negative Urine Bilirubin Negative Urine Urobilinogen (Auto) Negative Ur Leukocyte Esterase Negative Urine RBC 1 Urine WBC 1 Ur Squamous Epith Cells 0 Urine Bacteria None Ur Culture Indicated? Not Indicated Urine Opiates Screen Negative Urine Fentanyl Screen Negative Ur Barbiturates Screen Negative U Amphetamin/Meth Scrn Negative U Benzodiazepines Scrn Negative U Cocaine Metab Screen Negative U Marijuana (THC) Screen Negative Ethyl Alcohol < 3.0 Blood Type B Positive Antibody Screen NEGATIVE Blood Bank Wristband ID Yes 09/02/24 09/02/24 09/02/24 18:20 21:52 22:22 WBC RBC Hgb Hct MCV MCH MCHC RDW Std Deviation Plt Count Neut % (Auto) Lymph % (Auto) Travis % (Auto) Eos % (Auto) Baso % (Auto) Neut # (Auto) Lymph # (Auto) Travis # (Auto) Eos # (Auto) Baso # (Auto) Immature Gran # (Auto) Absolute Nucleated RBC Immature Gran % Nucleated RBC % PT INR Puncture Site Right Radial ABG pH 7.39 ABG pCO2 40 ABG pO2 102 ABG HCO3 24 ABG O2 Saturation 99 H ABG Base Excess -1 VBG pH VBG pCO2 VBG pO2 VBG O2 Sat (Júnior) VBG Base Excess FiO2 50 Sodium Potassium Chloride Carbon Dioxide Anion Gap BUN Creatinine Estim Creat Clear Calc eGFR BUN/Creatinine Ratio Glucose Estimated Ave Glu mg/dL Hemoglobin A1c Calculated Osmolality Lactic Acid 3.2 H 2.1 H Calcium Corrected Calcium Phosphorus Magnesium Total Bilirubin AST ALT Alkaline Phosphatase Ammonia Total Creatine Kinase 164 Troponin I B-Natriuretic Peptide Total Protein Albumin Globulin Albumin/Globulin Ratio Triglycerides Cholesterol LDL Cholesterol, Calc HDL Cholesterol Cholesterol/HDL Ratio Procalcitonin Ur Collection Type Urine Color Urine Clarity Urine pH Ur Specific [place] Urine Protein Urine Glucose (UA) Urine Ketones Urine Blood Urine Nitrite Urine Bilirubin Urine Urobilinogen (Auto) Ur Leukocyte Esterase Urine RBC Urine WBC Ur Squamous Epith Cells Urine Bacteria Ur Culture Indicated? Urine Opiates Screen Urine Fentanyl Screen Ur Barbiturates Screen U Amphetamin/Meth Scrn U Benzodiazepines Scrn U Cocaine Metab Screen U Marijuana (THC) Screen Ethyl Alcohol Blood Type Antibody Screen Blood Bank Wristband ID 09/03/24 09/03/24 09/03/24 01:25 04:11 04:35 WBC 9.9 RBC 4.27 L Hgb 13.6 Hct 39.2 L MCV 92 MCH 31.9 MCHC 34.7 RDW Std Deviation 47.1 H Plt Count 197 D Neut % (Auto) 62 Lymph % (Auto) 23 Travis % (Auto) 14 H Eos % (Auto) 0 Baso % (Auto) 0 Neut # (Auto) 6.1 Lymph # (Auto) 2.3 Travis # (Auto) 1.4 H Eos # (Auto) 0.0 Baso # (Auto) 0.0 Immature Gran # (Auto) 0.02 H Absolute Nucleated RBC 0.00 Immature Gran % 0 Nucleated RBC % 0 PT INR Puncture Site Right Radial ABG pH 7.40 ABG pCO2 44 ABG pO2 99 ABG HCO3 27 H ABG O2 Saturation 90 L ABG Base Excess 2 VBG pH VBG pCO2 VBG pO2 VBG O2 Sat (Júnior) VBG Base Excess FiO2 45 Sodium 140 Potassium 4.2 Chloride 105 Carbon Dioxide 26.5 Anion Gap 9 BUN 16 Creatinine 1.0 Estim Creat Clear Calc 85.0 eGFR > 60 BUN/Creatinine Ratio [address] Glu mg/dL 114 Hemoglobin A1c 5.6 Calculated Osmolality 280 Lactic Acid 2.0 Calcium 8.6 Corrected Calcium 8.7 Phosphorus 3.7 Magnesium 1.8 Total Bilirubin 0.5 AST 20 ALT 20 Alkaline Phosphatase 69 Ammonia < 10 L Total Creatine Kinase 134 D Troponin I B-Natriuretic Peptide Total Protein 6.4 Albumin 3.9 Globulin 2.5 Albumin/Globulin Ratio 1.6 Triglycerides 94 Cholesterol 140 LDL Cholesterol, Calc 60 HDL Cholesterol 61 H Cholesterol/HDL Ratio 2.3 L Procalcitonin Ur Collection Type Urine Color Urine Clarity Urine pH Ur Specific [place] Urine Protein Urine Glucose (UA) Urine Ketones Urine Blood Urine Nitrite Urine Bilirubin Urine Urobilinogen (Auto) Ur Leukocyte Esterase Urine RBC Urine WBC Ur Squamous Epith Cells Urine Bacteria Ur Culture Indicated? Urine Opiates Screen Urine Fentanyl Screen Ur Barbiturates Screen U Amphetamin/Meth Scrn U Benzodiazepines Scrn U Cocaine Metab Screen U Marijuana (THC) Screen Ethyl Alcohol Blood Type Antibody Screen Blood Bank Wristband ID ABG Interpretation ABG results: 09/02/24 09/02/24 09/03/24 15:07 22:22 04:11 ABG pH 7.39 7.40 ABG pCO2 40 44 ABG pO2 102 99 ABG HCO3 24 27 H ABG O2 Saturation 99 H 90 L ABG Base Excess -1 2 VBG pH 7.22 L VBG pCO2 57 H VBG pO2 74 H VBG Base Excess -6 L Quality Measures Quality Measures none Advance care planning discussed with:: patient and other Assessment & Plan Assessment Current Active Medications: Generic Name Dose Route Start Last Admin Trade Name Freq PRN Reason Stop Dose Admin Acetaminophen 650 mg 09/02/24 18:51 Acetaminophen 325 Mg Tablet PO 10/02/24 18:50 Q6H PRN Fever >101.5 Apixaban 5 mg 09/02/24 21:00 09/03/24 08:20 Apixaban 2.5 Mg Tablet PO 09/23/24 20:59 5 mg BID EMMANUEL Administration Divalproex Sodium 1,000 mg 09/03/24 09:00 09/03/24 08:21 Divalproex Sod Er 250 Mg Cecilia (Non-Formulary) PO 10/03/24 08:59 Not Given BID EMMANUEL Protocol Fentanyl Citrate 2,500 mcg in 250 mls @ 2.5 mls/hr 09/02/24 18:59 Sublimaze Inj 2,500 Mcg/250 Ml Bag IV 09/07/24 15:17 .Q24H PRN PER PROTOCOL Protocol 25 MCG/HR Valproic Acid 500 mg/ Sodium 55 mls @ 50 mls/hr 09/03/24 09:30 09/03/24 10:29 Chloride IV 10/03/24 09:29 50 mls/hr Q6H EMMANUEL Administration Lacosamide 100 mg 09/03/24 09:00 09/03/24 08:21 Lacosamide Inj 200 Mg/20 Ml Vial IVP 10/03/24 08:59 100 mg BID EMMANUEL Administration Lorazepam 2 mg 09/02/24 19:00 09/03/24 04:58 Lorazepam 2 Mg/Ml Vial IVP 09/07/24 18:59 2 mg X1 PRN Administration Siezures Non-Formulary Medication 50 - 100 tab 09/02/24 21:00 09/03/24 08:21 Cenobamate [Xcopri Titration Pack] PO 10/02/24 20:59 Not Given BID EMMANUEL Pantoprazole Sodium 40 mg 09/02/24 19:00 09/03/24 08:20 Pantoprazole Inj 40 Mg Vial IVP 10/02/24 18:59 40 mg QDAY EMMANUEL Administration Sennosides 1 tab 09/03/24 09:00 09/03/24 08:21 Senna Tablet PO 10/03/24 08:59 1 tab QDAY EMMANUEL Administration Protocol Plan Assessment and plan: Summary: Mr. Ramirez is a 68-year-old male with past medical history of coronary artery disease status post stent 8 to 9 years ago, hemorrhagic CVA in 2021, seizures, hypertension and DVT who presented to [facility] on 09/02/2024 with chief complaints of seizure. Patient admitted to hospital for further workup for seizures, status epilepticus, status post intubation for airway protection . Neurological: # Seizures # Status epilepticus Differential diagnosis: Generalized tonic-clonic seizures, absence seizures, partial seizure Patient has history of seizure on valproate and Xcopri outpatient for management, follows neurologist Dr. Anthony Patient was unable to take his medication Xcopri for about 4 days due to nonavailability at pharmacy Patient had a witnessed seizure by family earlier this morning today, witnessed seizure activity for 8 minutes by EMS, tonic-clonic movements of bilateral upper and lower extremities noted per family. Patient was given about 8 mg of Versed by EMS. In ED no seizure activity noted, patient intubated due to concern of airway protection, GCS 3 and started on IV fentanyl and IV Versed Plan: -Patient started on IV valproate 500 mg every 6 hours -Started on lacosamide 100 mg twice daily IV per neurology recommendations, Xcopri not available. -As needed benzodiazepine for seizure/seizure-like activity -Consult neurology, appreciate recommendations -Neurochecks every hour -Seizure precautions -Aspiration precautions, HOB more than 30 degrees -Discontinued sedation -Discontinued Versed Cardiovascular: #Hypertension #Hyperlipidemia #History of MA, coronary artery disease status post PCI Patient on amlodipine 5 mg at home, atorvastatin 40 mg at home Plan: Monitor blood pressure Will resume home medications once extubated #Personal history of atrial fibrillation Patient not on any medication for A-fib per niece, pending med reconciliation Plan: Continue telemonitoring Eliquis 5mg BID Patient on carvedilol as needed #Bilateral lower extremity edema, 1+ Patient has no history of CHF Plan: Pending echocardiogram Pulmonary: #On mechanical ventilation status postintubation 09/02 for airway protection Currently patient's tidal volume 475, PEEP 5, respiratory rate 20, unable to protect airway currently on sedation Plan: Currently on pressure support Will extubate patient later today if meets criteria GI: #Hyperammonemia, resolved No history of liver disease, currently AST/ALT and bilirubin normal GI prophylaxis: IV Protonix daily Renal/: #Metabolic acidosis, resolved #Lactic acidosis, resolved Secondary to seizure Patient was given 1 L NS at 150 cc/h #Scrotal and inguinal redness Per patient's niece, patient had a vascular procedure recently Will continue to monitor Endocrine: #Hyperglycemia Patient's fingerstick blood glucose 148, blood glucose on CMP 133 Plan: A1c 5.6 Infectious disease: Patient was given ceftriaxone x 1 in ED, will follow blood cultures. Sputum culture Gram stain shows GPC, epithelial cells more than 25, contaminated sample Integumentary: #Recent history of DVT Patient was recently started on Eliquis 5 mg twice daily by cardiology per med review-08/25 Will resume Eliquis 5 twice daily DVT prophylaxis: Eliquis GI prophylaxis: IV Protonix Diet: N.p.o. Lines: Peripheral IV Code status: Full code, per patient's niece patient has a POLST form, requested patient to bring a copy. Patient's surrogate decision maker currently Dara (patient's niece) [phone], primary decision maker Gema Timmy ([phone]) Case discussed with Attending Dr. Villalta and Dr. Landeros PGY3. Maikol Wilder PGY1 Disclaimer: This note was dictated by speech recognition. Minor errors in dope heater may be present due to voice recognition software.
--- NOTE | 2024-09-03 13:30 | PC.SS ---
Delayed entry from 09-03-24: PANTRY GOODS MAKER conducted bedside contact with the patient conduct initial assessment and to discuss discharge planning. Present at bedside with patient was sister, Gema Warner . Patient currently in ICU and intubated. Information obtained from the patient?s sister. Patient resides at home with sister, Gema Warner. Patient utilizes a walker at home to assist with ambulation. Patient does not utilize home oxygen. Patient possesses the ability to complete ADL?s independently. Patient?s medical surrogated decision maker is sister, Gema Warner. PCP is Charlene Leo, [facility]. Patient?s glass science engineer is Dr. Lin. Patient?s neurologist is Dr. Elizabeth. Patient utilizes [facility] for medication services. Discharge plan is for the patient to return home. If the patient requires home oxygen at the time of discharge, no preferred provider identified. Family will provide transportation on behalf of the patient. No discharge needs identified by the patient. No further intervention required at this time, social science teacher will be available to address any further concerns. Next of Kin: Gema Warner D/C Plan: Home
--- NOTE | 2024-09-03 13:48 | PC.SS ---
POLST form completed. Trial period of Full Treatment. Copy of POLST placed in patient's chart.
--- NOTE | 2024-09-03 16:20 | ESPR_ITS ---
Documentation for date of: 09/03/24 Subjective Subjective Interval history: This 68-year-old male who was intubated in the ER yesterday for airway protection due to seizure activity. Overnight he had some brief 10-second period of seizure activity and was given Ativan. Otherwise he was afebrile with a good urinary output. He is able to wake up and follow commands though does still appear somewhat lethargic. Critical Care Note Critical care time (min.): 36 Exam Vital Signs Temp Pulse Resp BP Pulse Ox O2 Del Method O2 Flow Rate 97.9 F 94 17 110/68 95 Mechanical Ventilation 2 09/03/24 07:00 09/03/24 15:36 09/03/24 15:36 09/03/24 14:50 09/03/24 15:36 09/02/24 18:10 09/03/24 15:36 FiO2 28 09/03/24 15:36 Narrative Exam General-no acute distress, intubated, off sedation HEENT-normocephalic, atraumatic, sclera icteric, ET tube and OG tube in place, mucosa hydrated Chest-lungs clear to auscultation bilaterally, heart regular rhythmic, no bruits or murmurs auscultated times exam, no increased work of breathing Abdomen-soft, nontender, bowel sounds present, no rebound or guarding Extremities-pulses palpable, no clubbing, no cyanosis, minimal edema of lower extremities, no mottling Vent PSV Physical Exam Completion Physical Exam Complete?: Yes 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 Labs 09/03/24 04:35 09/03/24 04:35 Labs: Laboratory Results - last 24 hr 09/02/24 09/02/24 09/02/24 15:33 18:20 21:52 WBC RBC Hgb Hct MCV MCH MCHC RDW Std Deviation Plt Count Neut % (Auto) Lymph % (Auto) [place] % (Auto) Eos % (Auto) Baso % (Auto) Neut # (Auto) Lymph # (Auto) [place] # (Auto) Eos # (Auto) Baso # (Auto) Immature Gran # (Auto) Absolute Nucleated RBC Immature Gran % Nucleated RBC % Puncture Site ABG pH ABG pCO2 ABG pO2 ABG HCO3 ABG O2 Saturation ABG Base Excess FiO2 Sodium Potassium Chloride Carbon Dioxide Anion Gap BUN Creatinine Estim Creat Clear Calc eGFR BUN/Creatinine Ratio Glucose Estimated Ave Glu mg/dL Hemoglobin A1c Calculated Osmolality Lactic Acid 3.2 H 2.1 H Calcium Corrected Calcium Phosphorus Magnesium Total Bilirubin AST ALT Alkaline Phosphatase Ammonia Total Creatine Kinase 164 Total Protein Albumin Globulin Albumin/Globulin Ratio Triglycerides Cholesterol LDL Cholesterol, Calc HDL Cholesterol Cholesterol/HDL Ratio Blood Type B Positive Antibody Screen NEGATIVE Blood Bank Wristband ID Yes 09/02/24 09/03/24 09/03/24 22:22 01:25 04:11 WBC RBC Hgb Hct MCV MCH MCHC RDW Std Deviation Plt Count Neut % (Auto) Lymph % (Auto) [place] % (Auto) Eos % (Auto) Baso % (Auto) Neut # (Auto) Lymph # (Auto) [place] # (Auto) Eos # (Auto) Baso # (Auto) Immature Gran # (Auto) Absolute Nucleated RBC Immature Gran % Nucleated RBC % Puncture Site Right Radial Right Radial ABG pH 7.39 7.40 ABG pCO2 40 44 ABG pO2 102 99 ABG HCO3 24 27 H ABG O2 Saturation 99 H 90 L ABG Base Excess -1 2 FiO2 50 45 Sodium Potassium Chloride Carbon Dioxide Anion Gap BUN Creatinine Estim Creat Clear Calc eGFR BUN/Creatinine Ratio Glucose Estimated Ave Glu mg/dL Hemoglobin A1c Calculated Osmolality Lactic Acid 2.0 Calcium Corrected Calcium Phosphorus Magnesium Total Bilirubin AST ALT Alkaline Phosphatase Ammonia Total Creatine Kinase Total Protein Albumin Globulin Albumin/Globulin Ratio Triglycerides Cholesterol LDL Cholesterol, Calc HDL Cholesterol Cholesterol/HDL Ratio Blood Type Antibody Screen Blood Bank Wristband ID 09/03/24 04:35 WBC 9.9 RBC 4.27 L Hgb 13.6 Hct 39.2 L MCV 92 MCH 31.9 MCHC 34.7 RDW Std Deviation 47.1 H Plt Count 197 D Neut % (Auto) 62 Lymph % (Auto) 23 [place] % (Auto) 14 H Eos % (Auto) 0 Baso % (Auto) 0 Neut # (Auto) 6.1 Lymph # (Auto) 2.3 [place] # (Auto) 1.4 H Eos # (Auto) 0.0 Baso # (Auto) 0.0 Immature Gran # (Auto) 0.02 H Absolute Nucleated RBC 0.00 Immature Gran % 0 Nucleated RBC % 0 Puncture Site ABG pH ABG pCO2 ABG pO2 ABG HCO3 ABG O2 Saturation ABG Base Excess FiO2 Sodium 140 Potassium 4.2 Chloride 105 Carbon Dioxide 26.5 Anion Gap 9 BUN 16 Creatinine 1.0 Estim Creat Clear Calc 85.0 eGFR > 60 BUN/Creatinine Ratio [address] Glu mg/dL 114 Hemoglobin A1c 5.6 Calculated Osmolality 280 Lactic Acid Calcium 8.6 Corrected Calcium 8.7 Phosphorus 3.7 Magnesium 1.8 Total Bilirubin 0.5 AST 20 ALT 20 Alkaline Phosphatase 69 Ammonia < 10 L Total Creatine Kinase 134 D Total Protein 6.4 Albumin 3.9 Globulin 2.5 Albumin/Globulin Ratio 1.6 Triglycerides 94 Cholesterol 140 LDL Cholesterol, Calc 60 HDL Cholesterol 61 H Cholesterol/HDL Ratio 2.3 L Blood Type Antibody Screen Blood Bank Wristband ID Assessment & Plan Additional Assessment Additional Assessment: In summary this 68-year-old male admitted to the 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 Awake but somewhat lethargic he is likely still postictal. Seizure appears to be secondary to inability to obtain seizure meds. His head CT is within normal limits History of CVA CV History of dyslipidemia-continue statin Resp Acute respiratory failure-intubated for airway protection. Currently doing well. Tolerating PSV 5 5 and will obtain weaning parameters for extubation Renal LA- resolved today GI GI prophylaxis-on PPI Endo Stable Heme History of DVT-on Eliquis ID Stable Case discussed with ICU team Labs, imaging and records reviewed Approximately 36 cc minutes required for evaluation, exam, review, intervention and discussion with formulation of plan of care for this critically ill patient with respiratory failure currently intubated and on mechanical ventilation at high risk for further and ongoing decompensation Provider Notation Provider Notation: Although this document has been carefully reviewed, there may still be some phonetic and other typographical errors. These errors are purely grammatical due to imperfections in the software program and should not be construed in any way to compromise the substance of the patient's medical care during this visit. Thank you for the opportunity and privilege in assisting you with this patient's care and management.
--- NOTE | 2024-09-03 16:55 | PC.SS ---
Update: Patient extubated today.
--- NOTE | 2024-09-03 18:12 | PD.RESEVENT ---
Documentation for date of: 09/03/24 Event Note Event Note: Hospitalist team accepted an ICU downgrade, 68-year-old male, Pj Ramirez, who was admitted for airway protection secondary to seizures. He originally presented to the hospital with seizure lasting 8 minutes. He ran out of his home XCOPRI for 4 days which likely cause him to seize. Patient started on VIMPAT and VALPROATE. No recurrent seizure since admission. Patient extubated, and stable for downgrade to floors. The hospitalist team will assume care of the patient tomorrow 09/04/2024 in AM. Patient case was discussed with attending, Dr. Es ACEVEDO and senior residents Dr. Ambrose and Dr. Lopes. Crystal Welch DO PGYI
--- NOTE | 2024-09-03 21:29 | PD.VPROG1 ---
Telemedicine visit statement This visit was conducted with the use of phone was obtained on 09/03/24 at 2122. Documentation for date of: 09/03/24 Subjective Subjective Interval history: Patient is in ICU, got extubated this afternoon and is doing better, awake, alert, oriented x2, moves all extremities. Last sz was yesterdya evening. Tolerating current meds well without any SE. Virtual exam Vital Signs Temp Pulse Resp BP Pulse Ox O2 Del Method O2 Flow Rate 98.9 F 89 16 109/74 95 Mechanical Ventilation 2 09/03/24 16:00 09/03/24 18:00 09/03/24 18:00 09/03/24 18:00 09/03/24 18:00 09/02/24 18:10 09/03/24 15:36 FiO2 28 09/03/24 15:36 Objective Labs 09/03/24 04:35 09/03/24 04:35 Labs: Laboratory Results - last 24 hr 09/02/24 09/02/24 09/03/24 21:52 22:22 01:25 WBC RBC Hgb Hct MCV MCH MCHC RDW Std Deviation Plt Count Neut % (Auto) Lymph % (Auto) [place] % (Auto) Eos % (Auto) Baso % (Auto) Neut # (Auto) Lymph # (Auto) [place] # (Auto) Eos # (Auto) Baso # (Auto) Immature Gran # (Auto) Absolute Nucleated RBC Immature Gran % Nucleated RBC % Puncture Site Right Radial ABG pH 7.39 ABG pCO2 40 ABG pO2 102 ABG HCO3 24 ABG O2 Saturation 99 H ABG Base Excess -1 FiO2 50 Sodium Potassium Chloride Carbon Dioxide Anion Gap BUN Creatinine Estim Creat Clear Calc eGFR BUN/Creatinine Ratio Glucose Estimated Ave Glu mg/dL Hemoglobin A1c Calculated Osmolality Lactic Acid 2.1 H 2.0 Calcium Corrected Calcium Phosphorus Magnesium Total Bilirubin AST ALT Alkaline Phosphatase Ammonia Total Creatine Kinase Total Protein Albumin Globulin Albumin/Globulin Ratio Triglycerides Cholesterol LDL Cholesterol, Calc HDL Cholesterol Cholesterol/HDL Ratio 09/03/24 09/03/24 04:11 04:35 WBC 9.9 RBC 4.27 L Hgb 13.6 Hct 39.2 L MCV 92 MCH 31.9 MCHC 34.7 RDW Std Deviation 47.1 H Plt Count 197 D Neut % (Auto) 62 Lymph % (Auto) 23 [place] % (Auto) 14 H Eos % (Auto) 0 Baso % (Auto) 0 Neut # (Auto) 6.1 Lymph # (Auto) 2.3 [place] # (Auto) 1.4 H Eos # (Auto) 0.0 Baso # (Auto) 0.0 Immature Gran # (Auto) 0.02 H Absolute Nucleated RBC 0.00 Immature Gran % 0 Nucleated RBC % 0 Puncture Site Right Radial ABG pH 7.40 ABG pCO2 44 ABG pO2 99 ABG HCO3 27 H ABG O2 Saturation 90 L ABG Base Excess 2 FiO2 45 Sodium 140 Potassium 4.2 Chloride 105 Carbon Dioxide 26.5 Anion Gap 9 BUN 16 Creatinine 1.0 Estim Creat Clear Calc 85.0 eGFR > 60 BUN/Creatinine Ratio [address] Glu mg/dL 114 Hemoglobin A1c 5.6 Calculated Osmolality 280 Lactic Acid Calcium 8.6 Corrected Calcium 8.7 Phosphorus 3.7 Magnesium 1.8 Total Bilirubin 0.5 AST 20 ALT 20 Alkaline Phosphatase 69 Ammonia < 10 L Total Creatine Kinase 134 D Total Protein 6.4 Albumin 3.9 Globulin 2.5 Albumin/Globulin Ratio 1.6 Triglycerides 94 Cholesterol 140 LDL Cholesterol, Calc 60 HDL Cholesterol 61 H Cholesterol/HDL Ratio 2.3 L ABG Interpretation ABG results: 09/02/24 09/02/24 09/03/24 15:07 22:22 04:11 ABG pH 7.39 7.40 ABG pCO2 40 44 ABG pO2 102 99 ABG HCO3 24 27 H ABG O2 Saturation 99 H 90 L ABG Base Excess -1 2 VBG pH 7.22 L VBG pCO2 57 H VBG pO2 74 H VBG Base Excess -6 L Assessment & Plan Problem List (1) Seizure disorder: Status: Acute Assessment and plan: with status epilepticus due to not being able to get Xcopri for 4 days. Loaded with keppra, switched to VPA IV and IV Lacosamide as xcopri is nonformulary. no sz for more than 24 hours. Will switch to PO depakote 1000 mg bid and Vimpat 100 mg po bid once he passed the swallow eval. (2) CVA, old, hemiparesis: Status: Chronic Assessment and plan: unchanged with residual hemiparesis continue Eliquis when able to tolerate oral diet (3) Status epilepticus: Status: Acute Assessment and plan: resolved. (4) Acute respiratory insufficiency: Status: Resolved Assessment and plan: s/p extubation, no downgraded to Telemetry.
[2024-09-04] VITALS (9 sets, daily range): BP systolic 105–132; BP diastolic 68–87; PULSE 69–106; RESP 12–25; TEMP 36.1–36.8; O2SAT 93–95; BMI 29.8
[2024-09-04] MEDS: VALPROATE SOD INJ 500 MG in SODIUM CHLORIDE 0.9% 50 ML 50 MG IV (05:02)
[2024-09-04 06:54] LABS: Alanine Aminotransferase 18 U/L (10-49); Albumin, Serum 4.2 gm/dL (3.4-4.8); Albumin/Globulin Ratio 1.6 (1.2-2.2); Alkaline Phosphatase 66 U/L (46-116); Anion Gap 9 (7-16); Aspartate Amino Transferase 22 U/L (0-34); BUN/Creatinine Ratio 16 Ratio (12-20); Bilirubin,Total 0.8 mg/dL (0.3-1.2); Blood Urea Nitrogen 16 mg/dL (9-23); Calcium 8.9 mg/dL (8.3-10.6); Calcium (Corrected) 8.9 mg/dL (8.5-10.1); Carbon Dioxide 26.7 mMol/L (20.0-31.0); Chloride 103 mMol/L (98-107); Estimated Creatinine Clearance 86.3 mL/min (>60); Globulin 2.7 gm/dL (2.3-3.5); Glucose 87 mg/dL (74-106); Osmolality,Calculated 277 (275-295); Potassium 4.1 mMol/L (3.4-5.1); Sodium 139 mMol/L (136-145); Total Protein 6.9 gm/dL (5.7-8.2); eGFR > 60 See Note
[2024-09-04] MEDS: LACOSAMIDE 50 MG TABLET 100 MG PO ×2 (08:34→20:49)
[2024-09-04] MEDS: APIXABAN 2.5 MG TABLET 5 MG PO ×2 (08:34→20:49)
[2024-09-04] MEDS: SENNA TABLET 1 TAB PO (08:34)
[2024-09-04] MEDS: DIVALPROEX SOD ER 250 MG TABER (NON-FORMULARY) 1000 MG PO ×2 (08:35→20:50)
[2024-09-04] MEDS: PANTOPRAZOLE INJ 40 MG VIAL IVP (08:35)
--- NOTE | 2024-09-04 08:36 | PCS.ST ---
Swallow Evaluation completed. See report for details. Recommend chopped diet/regular liquids.
[2024-09-04 08:42] LABS: Basophils % (Auto) 0 % (0-2.5); Eosinophils % (Auto) 1 % (0-10); Hematocrit 38.5 % (41.0-53.0); Hemoglobin 13.6 g/dL (13.5-16.0); Immature Granulocytes % (Auto) 0 % (0-0); Immature Granulocytes Auto 0.02 Thou/mm3 (0.00-0.00); Lymphocytes # (Auto) 1.3 Thou/mm3 (1.0-4.8); Lymphocytes % (Auto) 17 % (10-50); Mean Corpuscular HGB Conc 35.3 g/dl (31.0-37.0); Mean Corpuscular Hemoglobin 32.2 pg (25.0-35.0); Mean Corpuscular Volume 91 fL (80-100); Monocytes # (Auto) 1.2 Thou/mm3 (0.0-0.8); Monocytes % (Auto) 16 % (0-12); Neutrophils # (Auto) 5.2 Thou/mm3 (1.8-7.7); Neutrophils % (Auto) 67 % (37-80); Nucleated Red Blood Cell % 0 /100 WBC (0); Platelet Count 198 Thou/mm3 (140-440); RDW Standard Deviation 46.5 fL (35.1-43.9); Red Blood Count 4.22 Miln/mm3 (4.50-5.90); White Blood Count 7.9 Thou/mm3 (3.8-10.6)
--- NOTE | 2024-09-04 09:15 | XR_ITS ---
Examination: Duplex scan of the lower extremity, unilateral right complete Date and time of exam: September 04, 2024 1351 hours INDICATIONS: Seizure September 02, 2024, altered mental status, patient is immobile with leg swelling this week Technique: Duplex scan of the extremity veins using B-mode/grayscale imaging and Doppler spectral analysis and color flow Attention is directed to internal echogenicity, compression and augmentation involving these veins, color flow assessment, spectral analysis Findings: Major deep venous structures in the extremity demonstrate normal course and caliber. There is no evidence of deep vein thrombosis. Normal color flow and spectral analysis Impression: Negative for DVT..
--- NOTE | 2024-09-04 11:14 | ESPR_ITS ---
Documentation for date of: 09/04/24 Subjective Subjective Interval history: Patient was seen at bedside this morning. No overnight events. Patient's last seizure was on the night of 09/02-. Patient was extubated yesterday. Neurology recommended to start patient on Depakote 1000 mg twice daily and Vimpat 100 mg p.o. twice daily. Patient passes swallow eval today therefore his medications were started. Patient was noted to have right lower extremity swelling more pronounced than left lower extremity as well as calf tenderness on the right lower extremity therefore ordered ultrasound venous Doppler of right lower extremity. Patient has no other complaints at this time. Exam Vital Signs Temp Pulse Resp BP Pulse Ox O2 Del Method O2 Flow Rate 97.6 F 89 16 113/79 93 L Nasal Cannula 2 09/04/24 07:58 09/04/24 09:20 09/04/24 09:20 09/04/24 07:58 09/04/24 09:20 09/04/24 07:58 09/04/24 09:20 FiO2 28 09/04/24 09:20 Narrative Exam General: A/O x2 (person and place), no acute distress Eyes: PERRL, EOMI. Anicteric, vision grossly intact. Ears: No ear pain, no ear discharge, Hearing grossly intact. Nose: No nasal discharge. Mouth/Throat: Dry mucous membranes, no redness, no lesions. Neck: Neck supple, non-tender, no cervical lymphadenopathy. Lungs: Clear RACH to auscultation and percussion, No accessory muscle use. Cardio: Normal S1/S2, regular rhythm, no murmurs, no JVD Abdomen: Soft, non-tender, no palpable masses, peristalsis present, no guarding or rebound. Extremities: Symmetrical, no significant deformities, R LE 1+ edema> L LE, calf tenderness in RLE , non-tender, peripheral pulses presents. Skin: No rashes, no lesions, warm to touch. Neuro: No focal neurological deficits. Psych: Flat effect and slow response. Objective Labs 09/04/24 07:50 09/04/24 05:55 Labs: Laboratory Results - last 24 hr 09/04/24 09/04/24 05:55 07:50 WBC 7.9 RBC 4.22 L Hgb 13.6 Hct 38.5 L MCV 91 MCH 32.2 MCHC 35.3 RDW Std Deviation 46.5 H Plt Count 198 Neut % (Auto) 67 Lymph % (Auto) 17 [place] % (Auto) 16 H Eos % (Auto) 1 Baso % (Auto) 0 Neut # (Auto) 5.2 Lymph # (Auto) 1.3 [place] # (Auto) 1.2 H Eos # (Auto) 0.0 Baso # (Auto) 0.0 Immature Gran # (Auto) 0.02 H Absolute Nucleated RBC 0.00 Immature Gran % 0 Nucleated RBC % 0 Sodium 139 Potassium 4.1 Chloride 103 Carbon Dioxide 26.7 Anion Gap 9 BUN 16 Creatinine 1.0 Estim Creat Clear Calc 86.3 eGFR > 60 BUN/Creatinine Ratio 16 Glucose 87 Calculated Osmolality 277 Calcium 8.9 Corrected Calcium 8.9 Phosphorus 3.0 Magnesium 2.0 Total Bilirubin 0.8 AST 22 ALT 18 Alkaline Phosphatase 66 Total Protein 6.9 Albumin 4.2 Globulin 2.7 Albumin/Globulin Ratio 1.6 ABG Interpretation ABG results: 09/02/24 09/02/24 09/03/24 15:07 22:22 04:11 ABG pH 7.39 7.40 ABG pCO2 40 44 ABG pO2 102 99 ABG HCO3 24 27 H ABG O2 Saturation 99 H 90 L ABG Base Excess -1 2 VBG pH 7.22 L VBG pCO2 57 H VBG pO2 74 H VBG Base Excess -6 L Quality Measures Quality Measures none Advance care planning discussed with:: patient Assessment & Plan Assessment Current Active Medications: Generic Name Dose Route Start Last Admin Trade Name Freq PRN Reason Stop Dose Admin Acetaminophen 650 mg 09/02/24 18:51 Acetaminophen 325 Mg Tablet PO 10/02/24 18:50 Q6H PRN Fever >101.5 Apixaban 5 mg 09/02/24 21:00 09/04/24 08:34 Apixaban 2.5 Mg Tablet PO 09/23/24 20:59 5 mg BID EMMANUEL Administration Atorvastatin Calcium 80 mg 09/04/24 21:00 Atorvastatin Calcium 20 Mg Tablet PO 10/04/24 20:59 HS EMMANUEL Divalproex Sodium 1,000 mg 09/03/24 09:00 09/04/24 08:35 Divalproex Sod Er 250 Mg Cecilia (Non-Formulary) PO 10/03/24 08:59 1,000 mg BID EMMANUEL Administration Protocol Lacosamide 100 mg 09/04/24 09:00 09/04/24 08:34 Lacosamide 50 Mg Tablet PO 10/04/24 08:59 100 mg BID EMMANUEL Administration Non-Formulary Medication 50 - 100 tab 09/02/24 21:00 09/04/24 10:04 Cenobamate [Xcopri Titration Pack] PO 10/02/24 20:59 Not Given BID EMMANUEL Pantoprazole Sodium 40 mg 09/02/24 19:00 09/04/24 08:35 Pantoprazole Inj 40 Mg Vial IVP 10/02/24 18:59 40 mg QDAY EMMANUEL Administration Sennosides 1 tab 09/03/24 09:00 09/04/24 08:34 Senna Tablet PO 10/03/24 08:59 1 tab QDAY EMMANUEL Administration Protocol Plan 68-year-old male with past medical history of CAD status post stents, 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 Patient was subsequently downgraded to medical floors on 09/04/2024. #Seizure #Status epilepticus #Hx of seizures ? Patient had an episode of witnessed seizure at home as well as by EMS. ?Patient had been unable to take his Xcopri due to being unable to refill it as the pharmacy did not have the medication. ? Patient did follow-up with Dr Anthony as an outpatient. Plan: ? Will continue with lacosamide 100 mg BID and depokate 1,000 mg BID as per neurology ? Seizure precautions ? Neurology consulted, appreciate recommendations ?Will continue to monitor #Right lower extremity swelling #Hx of DVT ? Patient's right lower extremity was swollen and tender in the calf, more swelling when compared to the left lower extremity. ? Given patient's history of DVT will order ultrasound venous Doppler of the right lower extremity Plan: ?ultrasound venous Doppler of the right lower extremity ordered, will follow up ?On Eliquis 5 mg twice daily #Hx of A-fib ? Patient's EKG initially that showed atrial flutter ? Patient appears to be rate controlled at this time Plan: ? Will continue with Eliquis 5 mg twice daily ? Will continue to monitor #Hx of hypertension #Hx of hyperlipidemia #CAD status post stents ?Restarted patient's atorvastatin ?Patient blood pressure has been well-controlled during hospital admission therefore will hold off on antihypertensive medication for now Disposition: Patient seen in telemetry, continue depokate 1000 mg BID and lacosamide 100mg BID . Diet: Dysphagia 3 GI prophylaxis: Protonix DVT prophylaxis: Eliquis Code: Full Case disclosed with Attending Dr. Suggs and My senior Dr. Lopes PGY2. Geoffrey Escalante PGY1 Senior Resident Attestation: Patient is a 68-year-old male with significant past medical history of CAD s/p stents, hemorrhagic CVA with residual right-sided deficit, A-fib on Eliquis, hypertension, DVT, and seizure who admitted to the ICU on 09/02/2024 after having witnessed seizure is being treated for seizure disorder. The patient was interactive, but was only alert and oriented to himself. Vitals and labs were fairly stable, and was started on lacosamide 100 Mg twice daily and a Depakote thousand Mg twice daily as per neurology. I discussed with and supervised the music industry internship physician involved in the care of this patient. I personally saw and examined the patient and discussed the assessment and plan with the entire medicine team, including my attending. I agree with the assessment and plan as documented above. Hiram Lopes MD PGY2 Internal Medicine Attending Provider Attestation/Addendum 68-year-old male patient was admitted for seizure status post mechanical ventilation for airway protection. The patient is currently on Depakote and Vimpat. There has been no recurrence of seizure. Patient is afebrile. He has history of DVT and A-fib. He is on Eliquis. Discussed with housestaff.
[2024-09-04] MEDS: ATORVASTATIN CALCIUM 20 MG TABLET 80 MG PO (21:25)
[2024-09-05] VITALS (8 sets, daily range): BP systolic 121–137; BP diastolic 80–90; PULSE 78–98; RESP 12–88; TEMP 36.1–36.8; O2SAT 91–95; BMI 30.1
[2024-09-05 06:28] LABS: Basophils % (Auto) 0 % (0-2.5); Eosinophils # (Auto) 0.1 Thou/mm3 (0.0-0.5); Eosinophils % (Auto) 2 % (0-10); Hematocrit 36.3 % (41.0-53.0); Hemoglobin 12.8 g/dL (13.5-16.0); Immature Granulocytes % (Auto) 0 % (0-0); Immature Granulocytes Auto 0.03 Thou/mm3 (0.00-0.00); Lymphocytes % (Auto) 27 % (10-50); Mean Corpuscular HGB Conc 35.3 g/dl (31.0-37.0); Mean Corpuscular Hemoglobin 31.5 pg (25.0-35.0); Mean Corpuscular Volume 89 fL (80-100); Monocytes # (Auto) 1.1 Thou/mm3 (0.0-0.8); Monocytes % (Auto) 16 % (0-12); Neutrophils # (Auto) 3.9 Thou/mm3 (1.8-7.7); Neutrophils % (Auto) 55 % (37-80); Nucleated Red Blood Cell % 0 /100 WBC (0); Platelet Count 206 Thou/mm3 (140-440); RDW Standard Deviation 44.6 fL (35.1-43.9); Red Blood Count 4.06 Miln/mm3 (4.50-5.90); White Blood Count 7.2 Thou/mm3 (3.8-10.6)
[2024-09-05 06:59] LABS: Alanine Aminotransferase 14 U/L (10-49); Albumin, Serum 3.9 gm/dL (3.4-4.8); Albumin/Globulin Ratio 1.6 (1.2-2.2); Alkaline Phosphatase 57 U/L (46-116); Anion Gap 8 (7-16); Aspartate Amino Transferase 17 U/L (0-34); BUN/Creatinine Ratio 21 Ratio (12-20); Bilirubin,Total 0.7 mg/dL (0.3-1.2); Blood Urea Nitrogen 21 mg/dL (9-23); Calcium 8.7 mg/dL (8.3-10.6); Calcium (Corrected) 8.8 mg/dL (8.5-10.1); Carbon Dioxide 26.7 mMol/L (20.0-31.0); Chloride 104 mMol/L (98-107); Estimated Creatinine Clearance 86.7 mL/min (>60); Globulin 2.4 gm/dL (2.3-3.5); Glucose 86 mg/dL (74-106); Magnesium 2.2 mg/dL (1.6-2.6); Osmolality,Calculated 279 (275-295); Phosphorous 3.8 mg/dL (2.4-5.1); Potassium 3.9 mMol/L (3.4-5.1); Sodium 139 mMol/L (136-145); Total Protein 6.3 gm/dL (5.7-8.2); eGFR > 60 See Note
--- NOTE | 2024-09-05 07:47 | PD.NEUROPROG ---
Documentation for date of: 09/04/24 Subjective Subjective Interval history: Patient was seen in telemetry today. No new symptoms reported, continues to have residual left hemiparesis, no sz last 2 days Exam - Neurology Vital Signs Temp Pulse Resp BP Pulse Ox O2 Del Method O2 Flow Rate 98.0 F 90 12 121/80 95 Nasal Cannula 2 09/05/24 04:00 09/05/24 07:08 09/05/24 04:00 09/05/24 04:00 09/05/24 04:00 09/05/24 04:00 09/05/24 04:00 FiO2 28 09/05/24 04:00 Narrative Exam GENERAL APPEARANCE: Well-developed, well-nourished mlae in no distress HEENT: Normocephalic, atraumatic, extraocular movements intact. Pupils: Equal reacting to light NECK: Supple, no JVD or bruits. CARDIOVASULAR: Heart: S1, S2 heard, regular without S3-S4 or murmur no rubs or gallops. LUNGS/CHEST: Clear to auscultation bilaterally. No rails, rhonchi, or wheezing. Normal inspection. ABDOMEN: Soft, nontender, with normal bowel sounds. No pulsatile masses. No rebound, rigidity, or guarding. Normal inspection and palpation. EXTREMITIES: Normal inspection and palpation. No edema, clubbing or cyanosis. SKIN: Warm and dry without rashes. Normal inspection. MUSCULOSKELETAL: No cervical, thoracic, lumbar or midline bony tenderness. Normal inspection. NEURO: left residual hemiparesis PSYCHIATRIC:normal mood and affect Objective Labs 09/05/24 05:20 09/05/24 05:20 Labs: Laboratory Results - last 24 hr 09/04/24 09/05/24 07:50 05:20 WBC 7.9 7.2 RBC 4.22 L 4.06 L Hgb 13.6 12.8 L Hct 38.5 L 36.3 L MCV 91 89 MCH 32.2 31.5 MCHC 35.3 35.3 RDW Std Deviation 46.5 H 44.6 H Plt Count 198 206 Neut % (Auto) 67 55 Lymph % (Auto) 17 27 [place] % (Auto) 16 H 16 H Eos % (Auto) 1 2 Baso % (Auto) 0 0 Neut # (Auto) 5.2 3.9 Lymph # (Auto) 1.3 2.0 [place] # (Auto) 1.2 H 1.1 H Eos # (Auto) 0.0 0.1 Baso # (Auto) 0.0 0.0 Immature Gran # (Auto) 0.02 H 0.03 H Absolute Nucleated RBC 0.00 0.00 Immature Gran % 0 0 Nucleated RBC % 0 0 Sodium 139 Potassium 3.9 Chloride 104 Carbon Dioxide 26.7 Anion Gap 8 BUN 21 Creatinine 1.0 Estim Creat Clear Calc 86.7 eGFR > 60 BUN/Creatinine Ratio 21 H Glucose 86 Calculated Osmolality 279 Calcium 8.7 Corrected Calcium 8.8 Phosphorus 3.8 Magnesium 2.2 Total Bilirubin 0.7 AST 17 ALT 14 Alkaline Phosphatase 57 Total Protein 6.3 Albumin 3.9 Globulin 2.4 Albumin/Globulin Ratio 1.6 ABG Interpretation ABG results: 09/02/24 09/02/24 09/03/24 15:07 22:22 04:11 ABG pH 7.39 7.40 ABG pCO2 40 44 ABG pO2 102 99 ABG HCO3 24 27 H ABG O2 Saturation 99 H 90 L ABG Base Excess -1 2 VBG pH 7.22 L VBG pCO2 57 H VBG pO2 74 H VBG Base Excess -6 L Assessment & Plan Assessment and plan (1) Seizure disorder: Status: Acute Assessment and plan: Continue with current meds: Depakote and Vimpat, siwtch to PO and Ativan for breakthrough seizures. PT evaluation as he is more awake and decide about the discharge plan. (2) CVA, old, hemiparesis: Status: Chronic Assessment and plan: continue with Eliquis and rate control. (3) Status epilepticus: Status: Resolved (4) Acute respiratory insufficiency: Status: Resolved
[2024-09-05] MEDS: APIXABAN 2.5 MG TABLET 5 MG PO (09:03)
[2024-09-05] MEDS: SENNA TABLET 1 TAB PO (09:03)
[2024-09-05] MEDS: LACOSAMIDE 50 MG TABLET 100 MG PO (09:03)
[2024-09-05] MEDS: PANTOPRAZOLE INJ 40 MG VIAL IVP (09:03)
[2024-09-05] MEDS: DIVALPROEX SOD ER 250 MG TABER (NON-FORMULARY) 1000 MG PO (09:04)
--- NOTE | 2024-09-05 09:23 | PC.SS ---
Follow up note: Patient resides with sister. Pending PT eval. Patient may d/c home today
--- NOTE | 2024-09-05 10:00 | PC.NURSE ---
O2 SAT ON ROOM AIR AT REST 87%,APPLIED O2 2L NC O2 SAT UP TO 94 %.
--- NOTE | 2024-09-05 12:03 | PC.SS ---
Follow up note: SS received p/c from PT indicating that patient needs short term SNF. Preference is [facility]. SS submitted inquiry on [facility] and PAS[facility] completed. D/c scheduled for today. Pending acceptance. Nursing states patient will also need new 02. [facility] transport will need to be set up.
--- NOTE | 2024-09-05 14:25 | ESDS_ITS ---
Planned Discharge Date 09/05/24 DS: Providers Provider Date of admission: 09/02/24 18:51 Primary care physician: GEOVANNA Vargas Admitting Provider: Yuko Villalta MD Attending Provider on Admission: Chavo Suggs MD Consults: 09/02/24 18:55 Consult to Neurology / Tele-Neurology Stat Comment: Seizures Consulting Provider: Young Anthony 09/03/24 17:47 Referral Speech Therapy Urgent Comment: s/p extubation 09/05/24 07:58 Referral Physical Therapy Urgent Comment: Please prioritize as the patient will get DC today Physician Instructions: Attending Provider on DC: Kai Gimenez MD Discharging Provider: Kai Gimenez MD DS: Diagnosis Problem List Completed Was Problem List Reviewed/Reconciled?: Yes Hospital Course Hospital Course Hospital course: 68-year-old male with past medical history of CAD status post stents, 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 In the ED patient came in with complaints of witnessed seizures while on his way to the hospital by EMS after he had been 4 days of home his antiseizure medication Xcopri which we was unable to refill at the pharmacy. Patient was also intubated on admission. Initially patient was hypoxic and tachycardic. Initial labs were relevant for hypoxia, lactic acidosis, and hyperammonemia. Initial imaging included chest x-ray which was unremarkable, EKG which showed atrial flutter, head CT which showed left posterior craniotomy defect with adjacent encephalomalacia and posterior left parietal lobe, and echo that showed an EF of 65%. Patient was subsequently extubated on the second day of admission and his last seizure was on the night of 09/02-. Patient was subsequently downgraded to medical floors on 09/04/2024. Neurology saw the patient and recommended to switch patient to Depakote 1000 mg twice daily and lacosamide 100 mg twice daily. Hospital stay patient remained stable afterwards on these medications with no further seizure activity. Patient remained AO x 2 (not to time) with residual right-sided weakness secondary to his prior CVA. At the time of discharge patient was stable enough to be discharged to correction facility. Discharge plan: Please follow-up with primary care physician in 1 week after discharge Please follow-up with the neurologist in 1 to 2 weeks after discharge You have been started on Depakote 1000 mg twice daily and lacosamide 200 mg twice daily. Your Xcopri has been discontinued. It is vital that you continue taking antiseizure medications as prescribed which will be any further seizures. Please continue taking all other home medication as prescribed Please come back to the ER if symptoms persist or worsen Problems: #Seizure #Status epilepticus #Hx of seizures #Right lower extremity swelling #Hx of DVT #Hx of A-fib #Hx of hypertension #Hx of hyperlipidemia #CAD status post stents Case disclosed with Attending Dr. Gimenez and My senior Dr. Lopes PGY2. Geoffrey Escalante PGY1 Senior Resident Attestation: I discussed with and supervised the internal medicine hospitalist physician involved in the care of this patient. I personally saw and examined the patient and discussed the assessment and plan with the entire medicine team, including my attending. I agree with the discharge plan as documented above. Hiram Lopes MD PGY2 Internal Medicine Status at Discharge Overall status at discharge: patient is progressing back to baseline Time Spent with Patient Time attestation: Total time spent providing and/or coordinating discharge services:> 35 min Exam Vital Signs Temp Pulse Resp BP Pulse Ox O2 Del Method O2 Flow Rate 98.2 F 91 16 122/82 93 L Room Air 2 09/05/24 08:00 09/05/24 12:00 09/05/24 09:07 09/05/24 08:00 09/05/24 09:07 09/05/24 08:00 09/05/24 09:07 FiO2 28 09/05/24 09:07 Narrative Exam General: A/O x2 (person and place), no acute distress Eyes: PERRL, EOMI. Anicteric, vision grossly intact. Ears: No ear pain, no ear discharge, Hearing grossly intact. Nose: No nasal discharge. Mouth/Throat: Dry mucous membranes, no redness, no lesions. Neck: Neck supple, non-tender, no cervical lymphadenopathy. Lungs: Clear RACH to auscultation and percussion, No accessory muscle use. Cardio: Normal S1/S2, regular rhythm, no murmurs, no JVD Abdomen: Soft, non-tender, no palpable masses, peristalsis present, no guarding or rebound. Extremities: Symmetrical, no significant deformities, RACH LE edema 1+, non- tender, peripheral pulses presents. Skin: No rashes, no lesions, warm to touch. Neuro: No focal neurological deficits. R side weakness from prior CVA Psych: Flat effect and slow response. Discharge Plan Plan Patient Disposition: Xfer Skilled Nsg Fac (SNF) Care Plan Goals: Please follow-up with primary care physician in 1 week after discharge Please follow-up with the neurologist in 1 to 2 weeks after discharge You have been started on Depakote 1000 mg twice daily and lacosamide 200 mg twice daily. Your Xcopri has been discontinued. It is vital that you continue taking antiseizure medications as prescribed which will be any further seizures. Please continue taking all other home medication as prescribed Please come back to the ER if symptoms persist or worsen PT reccs: Patient is required max a with transfers and is unable to ambulate with which makes him-recs and unsafe to return home. Patient would benefit from daily PT to improve his strength and activity tolerance. Prescriptions/Referrals Prescriptions/Med Rec: New lacosamide 100 mg tablet 100 mg PO BID 30 Days Qty: 60 2RF Continued atorvastatin 80 mg tablet 80 mg PO QDAY Patient Comments: TAKE 1 TABLET BY MOUTH EVERY DAY carvedilol 6.25 mg tablet 6.25 mg PO BID PRN (Reason: elevated blood pressure) Patient Comments: TAKE 1 TABLET BY MOUTH TWICE A DAY amlodipine 5 mg tablet 5 mg PO QDAY Patient Comments: TAKE 1 TABLET BY MOUTH EVERY DAY baclofen 10 mg tablet 10 mg PO BID Eliquis 5 mg tablet 10 mg PO BID MDD 4 Qty: 28 0RF divalproex 500 mg tablet extended release 24 hr 1,000 mg PO BID 30 Days Qty: 120 2RF Discontinued Xcopri Titration Pack 50 mg (14)- 100 mg (14) tablets,dose pack 50 - 100 tab PO BID Patient Comments: TAKE BY ORAL ROUTE ONCE DAILY PER PACKAGE DIRECTIONS Referrals: Joyce Leo FNP [Primary Care Provider] - Patient/Caregiver Discharge Instructions Discharge Activity: as per physical therapy Other Discharge Activity Instructions:: Please follow-up with primary care physician in 1 week after discharge Please follow-up with the neurologist in 1 to 2 weeks after discharge You have been started on Depakote 1000 mg twice daily and lacosamide 200 mg twice daily. Your Xcopri has been discontinued. It is vital that you continue taking antiseizure medications as prescribed which will be any further seizures. Please continue taking all other home medication as prescribed Please come back to the ER if symptoms persist or worsen Education Materials: Diagnosing Epilepsy Print Language: French Stand Alone Forms: Radha Award Info., Patient Portal Info Letter Discharge Order Discharge Orders: Discharge (Routine); Ordered 09/05/24 Ordered By: Hiram Lopes Quality Discharge Quality Measures VTE prophylaxis Attestestation MD Attestation Face to face evaluation was performed by me. I have personally seen and examined the patient. I discussed the assessment and plan with the entire medicine team. I reviewed available medical records, imaging studies, laboratory results. I agree with the above subjective data, objective findings, assessment and plan except as corrected by me or noted below #recurrent Seizures #Status epilepticus DC to SNF PT saw him Continue with current anti epileptic regimen including valcporid acid 1000 mg BID and lacosamide 100 mg BID , can have prn ativan for breath though seizures. fu with PCP and Neurology after dc
--- NOTE | 2024-09-05 16:20 | PC.SS ---
SS spoke to Kiersten from [facility] who has placed pt on will call list until [facility] Nurse Echavarria is aware who will inform bedside nurse, Emilie. Melvina NOONAN is aware. SS has called bedside nurse, Emilie who is lyon. SS attempted to call patient's niece, Dara but was only able to voicemail time for transportation and location. SS attempted to contact niece, Dara but phone was busy.
[2024-09-09 07:01] LABS: Valporic Acid (Depak)* 46.3 mg/L (50.0-100.0)
== END 2024-09-05 17:30 | disposition skilled nursing facility (03) | DRG 100 ==
LOC: SERX 17:56 → SERHOLD 19:08 → S2SX 20:21 → S2NX 09-03 22:32
PROVIDERS: Student in an Organized Health Care Education/Training Program; Admitting Provider Internal Medicine; Emergency Provider Emergency Medicine; PCP Nurse Practitioner; Visit Provider Internal Medicine
DX: G40.901 Epilepsy, unspecified, not intractable, with status epilepticus (principal); J96.01 Acute respiratory failure with hypoxia; E72.20 Disorder of urea cycle metabolism, unspecified; E87.20 Acidosis, unspecified; I48.92 Unspecified atrial flutter; I69.151 Hemiplegia and hemiparesis following nontraumatic intracerebral hemorrhage affecting right dominant side; I25.10 Atherosclerotic heart disease of native coronary artery without angina pectoris; I10 Essential (primary) hypertension; E78.5 Hyperlipidemia, unspecified; R60.0 Localized edema; R73.9 Hyperglycemia, unspecified; I25.2 Old myocardial infarction; I48.91 Unspecified atrial fibrillation; G93.89 Other specified disorders of brain; Z86.718 Personal history of other venous thrombosis and embolism; Z95.5 Presence of coronary angioplasty implant and graft; Z78.1 Physical restraint status; Z79.01 Long term (current) use of anticoagulants; Z79.899 Other long term (current) drug therapy
CPT/HCPCS: 36415; 36600; 70450; 71045; 80053; 80061; 80164; 80307; 80320; 81001; 82140; 82550; 82803; 83036; 83605; 83735; 83880; 84100; 84145; 84484; 85025; 85610; 86850; 86900; 86901; 87040; 87081; 87205; 92526; 92610; 93005; 93306; 93971; 94002; 94003; 96365; 96374; 96375; 97162; 99291; C9254; J0696; J1953; J2060; J2251; J2470; J2704; J3010; J7030; A9270; G0480

== ENCOUNTER → 2025-04-07 | Outpatient (CLI) | payer MEDICARE, MEDICAID, SELFPAY ==
[2025-04-07 08:57] LABS: Collection Type, Urine Clean Catch
[2025-04-07 09:33] LABS: Basophils # (Auto) 0.0 Thou/mm3 (0.0-0.2); Basophils % (Auto) 0 % (0-2.5); Eosinophils # (Auto) 0.1 Thou/mm3 (0.0-0.5); Eosinophils % (Auto) 1 % (0-10); Hematocrit 41.6 % (41.0-53.0); Hemoglobin 14.7 g/dL (13.5-16.0); Immature Granulocytes Auto 0.01 Thou/mm3 (0.00-0.00); Lymphocytes # (Auto) 2.2 Thou/mm3 (1.0-4.8); Lymphocytes % (Auto) 38 % (10-50); Mean Corpuscular HGB Conc 35.3 g/dl (31.0-37.0); Mean Corpuscular Hemoglobin 32.5 pg (25.0-35.0); Mean Corpuscular Volume 92 fL (80-100); Monocytes # (Auto) 1.1 Thou/mm3 (0.0-0.8); Monocytes % (Auto) 19 % (0-12); Neutrophils # (Auto) 2.5 Thou/mm3 (1.8-7.7); Neutrophils % (Auto) 42 % (37-80); Nucleated Red Blood Cell # 0.00 Thou/mm3 (0.00-0.00); Nucleated Red Blood Cell % 0 /100 WBC (0); Platelet Count 178 Thou/mm3 (140-440); RDW Standard Deviation 45.6 fL (35.1-43.9); Red Blood Count 4.52 Miln/mm3 (4.50-5.90); White Blood Count 6.0 Thou/mm3 (3.8-10.6)
[2025-04-07 09:44] LABS: Bilirubin,Urine Negative (Negative); Blood,Urine 1+ (Negative); Clarity,Urine Clear (Clear/Hazy); Color,Urine Yellow (Lt Yel-Yel); Culture Indicated,Urine Not Indicated; Glucose, Urine Negative (Negative); Ketones,Urine Negative (Negative); Leukocyte Esterase,Urine Negative (Negative); Nitrite,Urine Negative (Negative); PH,Urine 6.0 (5.0-7.0); Protein,Urine Trace (Neg - Trace); RBC,Urine 13 /hpf (0-3); Specific Gravity,Urine 1.027 (1.001-1.035); Squamous Epithelial Cell,Urine 1 /hpf (0-5); Urobilinogen,Urine 2.0 mg/dL (0.0-1.0); WBC,Urine 6 /hpf (0-5)
[2025-04-07 09:49] LABS: Glucose Estimated Average 111 mg/dL (80-131); Hemoglobin A1C 5.5 % Hgb (4.8-6.0)
[2025-04-07 10:01] LABS: Alanine Aminotransferase 20 U/L (10-49); Albumin, Serum 4.0 gm/dL (3.4-4.8); Albumin/Globulin Ratio 1.8 (1.2-2.2); Alkaline Phosphatase 62 U/L (46-116); Anion Gap 11 (7-16); Aspartate Amino Transferase 24 U/L (0-34); BUN/Creatinine Ratio 14 Ratio (12-20); Bilirubin,Total 0.6 mg/dL (0.3-1.2); Blood Urea Nitrogen 14 mg/dL (9-23); Calcium 9.2 mg/dL (8.3-10.6); Calcium (Corrected) 9.2 mg/dL (8.5-10.1); Carbon Dioxide 23.7 mMol/L (20.0-31.0); Cardiac Risk Estimate 2.1 RATIO (4.0-6.7); Chloride 107 mMol/L (98-107); Cholesterol 106 mg/dL (132-200); Creatinine (Component) 1.0 mg/dL (0.6-1.3); Folate 10.74 ng/mL (>5.38); Free T4 (Free Thyroxine) 1.29 ng/dL (0.89-1.76); Globulin 2.2 gm/dL (2.3-3.5); Glucose 78 mg/dL (74-106); HDL Cholesterol 51 mg/dL (40-60); LDL Cholesterol,Calculated 38 mg/dL (0-130); Magnesium 2.0 mg/dL (1.6-2.6); Osmolality,Calculated 282 (275-295); Potassium 4.5 mMol/L (3.4-5.1); Sodium 142 mMol/L (136-145); Thyroid Stimulating Hormone 5.46 uIU/mL (0.55-4.78); Total Protein 6.2 gm/dL (5.7-8.2); Triglycerides 86 mg/dL (30-150); Vitamin B12 733 pg/mL (211-911); Vitamin D 25 Hydroxy Total 16.6 ng/mL (7.3-40.2); eGFR > 60 See Note
[2025-04-07 10:08] LABS: Ferritin 77 ng/mL (10.5-307.3); Iron 104 mcg/dL (65-175); Percent Iron Saturation 32 % (20-55); Total Iron Binding Capacity 325 mcg/dL (250-425); Unsaturated Iron Binding 221 (225-295)
[2025-04-07 10:11] LABS: Syphilis Nonreactive (Nonreactive)
[2025-04-14 07:10] LABS: Vitamin B1 (Thiamine)* 12 nmol/L (8-30); Vitamin B6, Plasma* 5.6 ng/mL (2.1-21.7)
== END | disposition home or self-care (01) ==
LOC: COPL 08:15
PROVIDERS: PCP Family Medicine
DX: E78.5 Hyperlipidemia, unspecified (principal); I10 Essential (primary) hypertension; R41.3 Other amnesia; G40.909 Epilepsy, unspecified, not intractable, without status epilepticus
CPT/HCPCS: 36415; 80053; 80061; 81001; 82306; 82607; 82728; 82746; 83036; 83540; 83550; 83735; 84207; 84425; 84439; 84443; 85025; 86780

== ENCOUNTER → 2025-04-24 | Outpatient (CLI) | payer MEDICARE, MEDICAID, SELFPAY ==
[2025-04-24 09:32] LABS: Basophils # (Auto) 0.0 Thou/mm3 (0.0-0.2); Basophils % (Auto) 0 % (0-2.5); Eosinophils # (Auto) 0.1 Thou/mm3 (0.0-0.5); Eosinophils % (Auto) 1 % (0-10); Hematocrit 42.6 % (41.0-53.0); Hemoglobin 14.9 g/dL (13.5-16.0); Immature Granulocytes Auto 0.01 Thou/mm3 (0.00-0.00); Lymphocytes # (Auto) 1.7 Thou/mm3 (1.0-4.8); Lymphocytes % (Auto) 30 % (10-50); Mean Corpuscular HGB Conc 35.0 g/dl (31.0-37.0); Mean Corpuscular Hemoglobin 31.9 pg (25.0-35.0); Mean Corpuscular Volume 91 fL (80-100); Monocytes # (Auto) 1.0 Thou/mm3 (0.0-0.8); Monocytes % (Auto) 17 % (0-12); Neutrophils # (Auto) 2.9 Thou/mm3 (1.8-7.7); Neutrophils % (Auto) 51 % (37-80); Nucleated Red Blood Cell # 0.00 Thou/mm3 (0.00-0.00); Nucleated Red Blood Cell % 0 /100 WBC (0); Platelet Count 182 Thou/mm3 (140-440); RDW Standard Deviation 46.0 fL (35.1-43.9); Red Blood Count 4.67 Miln/mm3 (4.50-5.90); White Blood Count 5.7 Thou/mm3 (3.8-10.6)
[2025-04-24 09:35] LABS: INR 1.0 (0.9-1.3); Partial Thromboplastin Time 25.0 Seconds (22.0-36.0); Prothrombin Time 11.1 Seconds (9.0-12.2)
[2025-04-24 09:46] LABS: Anion Gap 9 (7-16); BUN/Creatinine Ratio 10 Ratio (12-20); Blood Urea Nitrogen 10 mg/dL (9-23); Calcium 9.4 mg/dL (8.3-10.6); Carbon Dioxide 24.2 mMol/L (20.0-31.0); Chloride 108 mMol/L (98-107); Creatinine (Component) 1.0 mg/dL (0.6-1.3); Glucose 88 mg/dL (74-106); Osmolality,Calculated 279 (275-295); Potassium 4.5 mMol/L (3.4-5.1); Sodium 141 mMol/L (136-145); eGFR > 60 See Note
== END | disposition home or self-care (01) ==
PROVIDERS: PCP Nurse Practitioner Family; Referring Provider Internal Medicine; Visit Provider Nurse Practitioner Family
DX: I25.10 Atherosclerotic heart disease of native coronary artery without angina pectoris (principal); I48.91 Unspecified atrial fibrillation
CPT/HCPCS: 36415; 80048; 85025; 85610; 85730

== ENCOUNTER 2025-05-18 19:42 | Emergency (ER) | payer MEDICARE, MEDICAID, SELFPAY ==
[2025-05-18 19:43] VITALS: BP 124/80; PULSE 102; PULSE 96; RESP 18; TEMP 37; O2SAT 92; O2SAT 98; BMI 235.6
--- NOTE | 2025-05-18 20:03 | EDNOTE_ITS ---
ED General RME/HPI General Chief complaint: Seizure Stated complaint: FEELS LIKE HE'S GOING TO HAVE A SEIZURE Time Seen by Provider: 05/18/25 19:54 Arrival date/time: 05/18/25 19:42 CC: Aura suspecting an impending seizure HPI onset approximately 1 hour ago lasting approximately 30 minutes the patient states he typically gets this aura and then has a seizure last seizure was 2 to 3 years ago. Patient continues to take his antiseizure medicine. Patient denies chest pain shortness of breath difficulty breathing has had no URI type symptoms sore throat or any family members that are ill that are around him. Patient is awake alert oriented EMS reports stable vital signs. Related Data Home Medications ?Medication ?Instructions ?Recorded ?Confirmed amlodipine 5 mg tablet 5 mg PO QDAY 11/16/23 atorvastatin 80 mg tablet 80 mg PO QDAY 11/16/2309/02 baclofen 10 mg tablet 10 mg PO BID 11/16/23 carvedilol 6.25 mg tablet 6.25 mg PO BID PRN elevated blood 11/16/23 09/02/24 pressure Previous Rx's ?Medication ?Instructions ?Recorded apixaban 5 mg tablet (Eliquis) 10 mg (2 x 5 mg) PO BID #28 tabs 02/19/24 divalproex 500 mg tablet,extended 1,000 mg (2 x 500 mg ) PO BID 30 09/04/24 release 24 hr days #120 tabs lacosamide 100 mg tablet 100 mg PO BID 30 days #60 ta bs 09/04/24 Allergies Allergy/AdvReac Type Severity Reaction Status Date / Time No Known Allergies Allergy Verified 05/18/25 19:47 Review of Systems Review of Systems Narrative Review of Systems: GEN: No fever, no chills, no weight loss EYES: No discharge, no visual changes, no pain HEENT: No ear pain, no congestion, no sore throat PULM: No shortness of breath, no cough, no congestion CV: No chest pain, no dyspnea on exertion, no palpitations GI: No nausea, no vomiting, no diarrhea, no pain, no constipation : No frequency, no urgency, no dysuria MUSC/SKEL: No joint pain, no back pain SKIN: No rash PSYCH: No hallucinations, no depression HEME/LYMPH: No easy bleeding or bruising tendencies NEURO: No weakness, no headache Past Medical History Past Medical History NEUROLOGIC: Positive Neurological Disorders, Cerebrovascular Accident, Seizures and Paralysis; Negative Transient Ischemic Attacks (TIA), Dementia, Alzheimer's Disease, Brain Tumor, Meningitis, Epilepsy, Multiple Sclerosis, Cerebral Palsy, Amyotrophic Lateral Sclerosis (ALS/Kenisha Gehrig's), Guillain-Tovey Syndrome, Spina Bifida, Campos's Palsy, Subdural Hematoma, Migraine, Head Trauma, Spinal Cord Injury or Traumatic Brain Injury CARDIAC: Positive Cardiac Disorders, Myocardial Infarction, Coronary Artery Disease, Atherosclerotic Heart Disease, Hypercholesterolemia, Edema and Hypertension; Negative Cardiac Arrhythmia, Atrial Fibrillation, Angina, Heart Murmur, Peripheral Vascular Disease, Aneurysm, Congestive Heart Failure, Congenital Heart Disease, Valvular Heart Disease, Rheumatic Fever, Cardiomyopathy, Pericarditis, Cellulitis, Deep Vein Thrombosis, Hypotension or Varicose Veins RESPIRATORY: Negative Chronic Obstructive Pulmonary Disease (COPD), Asthma, Bronchitis, Emphysema, Pneumonia, Pulmonary Fibrosis, Cystic Fibrosis, Tuberculosis, Pulmonary Embolism, Pulmonary Edema or Sleep Apnea GASTROINTESTINAL: Positive Gastrointestinal Disorders, Gastrointestinal Bleed and Ulcer; Negative Hepatitis, Cirrhosis, Pancreatitis, Celiac Disease, Gall Bladder Disease, Esophageal Varices, Ewlls's Esophagus, Colitis, Ulcerative Colitis, Diverticulitis, Diverticulosis, Colorectal Cancer, Irritable Bowel, Crohn's Disease, Obstructive Bowel, Hiatal Hernia, Hemorrhoids, Gastroesophageal Reflux Disease or Obesity GENITOURINARY: Negative Genitourinary Disorders, Renal Disease, Kidney Stones, Polycystic Kidney Disease, Neurogenic Bladder, Inguinal Hernia, Dialysis, Prostate Cancer or Benign Prostatic Hyperplasia REPRODUCTIVE: Negative Breast Cancer, Fibroids, Genital Herpes, Gonorrhea, Syphilis or Testicular Cancer MUSCULOSKELETAL: Positive Musculoskeletal Disorders and Degenerative Disk Disease; Negative Muscular Dystrophy, Myasthenia Gravis, Marfan's Syndrome, Bone Cancer, Arthritis, Rheumatoid Arthritis, Osteoporosis, Gout, Scoliosis, Carpal Tunnel Syndrome, Fibromyalgia, Fractures, Degenerative Joint Disease, Osteomyelitis or Poliovirus ENT: Negative Cataracts, Glaucoma, Blind, Retinal Detachment, Macular Degeneration, Ear Infection, Deafness, Head Trauma or Eye Prosthesis ENDOCRINE: Negative Endocrine Disorders, Diabetes Mellitus Type 1, Diabetes Mellitus Type 2, Hypoglycemia, Huseyin's Syndrome, Nehemiah's Disease, Hyperthyroidism, Hypothyroidism, Parathyroid Disease, Pituitary Disease, Systemic Lupus Erythematosus, Syndrome of Inappropriate Antidiuretic Hormone (SIADH), Adrenal Disease or Graves' Disease HEMATOLOGIC: Negative Blood Disorders, Anemia, Leukemia, Hemophilia, Thalassemia, Sickle Cell Disease or Clotting Problems PSYCHO/SOCIAL: Positive Depression; Negative Psychiatric Problems, Schizophrenia, Recreational Drug Use, Bipolar Disorder, Anxiety, Behavior Problems, Self-Mutilation, Attention Deficit Disorder, Attention Deficit Hyperactivity Disorder, Depression, Post Traumatic Stress Disorder or Eating Disorder OTHER HISTORY: Negative Hospitalization, Autoimmune Disease, Down Syndrome, Autism, Developmental Delay, Shingles, Falls, Blood Transfusions, Blood Transfusion Reaction, Anesthesia Reactions, Organ Transplant, Chemotherapy, Radiation Therapy, Hyperbaric Therapy, MRSA, VRSA, Vancomycin-Resistant Enterococci, Human Immunodeficiency Virus (HIV), Chicken Pox, Measles, Mumps, Clostridium Difficile, Cancer, Breast Cancer, Colorectal Cancer, Lung Cancer, Prostate Cancer or Testicular Cancer Family History FAMILY HISTORY: Positive Family Cardiac Disorders and Family Cancer; Negative Family Psychiatric Problems, Family Respiratory Disorders, Family Gastrointestinal Problems or Family Anesthesia Reaction Surgical History SURGICAL: Positive Cardiac Surgery, Coronary Artery Bypass Graft, Coronary Stent , Cardiac Catheterization, Angiogram and Neurologic Surgery; Negative Open Heart Surgery, Valve Replacement, Vascular Surgery, Pacemaker, Auto Implanted Cardiovert Defib, Carotid Endarterectomy, Endocrine Surgery, Thyroidectomy, Ear Surgery, Tympanostomy Tube, Eye Surgery, Nose Surgery, Oral Surgery, Tonsillectomy, Adenoidectomy, Cochlear Implant, Corneal Transplant, Throat Surgery, Abdominal Surgery, Tracheostomy, Gastric Bypass Surgery, Gastrostomy, Bowel Surgery, Nephrectomy, Transurethral Resection, Joint Replacement, Amputation, Open Reduction Internal Fixation, Arthroscopy, Brain Shunt, Mastectomy, Lumpectomy, Hysterectomy, Tubal Ligation, Section, Vasectomy or Organ Transplant Social History SMOKING STATUS: Never smoker SUBSTANCE USE: does not use ED Exam Narrative Physical exam: [General: Not in any acute distress Head normocephalic HEENT: Within acceptable limits Neck is supple nontender Chest equal chest rise nontender to palpation Respiratory: Clear to auscultation no wheezes crackles or rubs CV: Rate rhythm is regular no murmurs rubs or clicks Abdomen is soft nontender no masses positive bowel sounds all 4 quadrants Back: No CVA tenderness no spinous process tenderness from cervical spine thoracic and lumbar spine Skin: Intact no petechiae rash induration ulceration or crepitus Extremities: Moving all extremity against resistance cap refill less than 2 seconds neurosensory intact Neuro: Awake alert oriented x3 Glascow coma 15 no focal deficits] Course Course Course Narrative: Patient has had no seizure activity or deterioration in neurologic status throughout his visit the emergency room, the patient was only here because under the pretense that he felt like he was going to have 1. At this time patient to be discharged home to follow-up with his primary care neurologist. Quality Measures none Orders Category Date Time Status Saline [Insert IV] NOW Care 05/18/25 19:55 Active CBC Stat Lab 05/18/25 20:24 Completed CMP [Comprehensive Metabolic Panel] Stat Lab 05/18/25 20:24 Completed Drug Screen,Urine Stat Lab 05/18/25 20:50 Completed Urinalysis Stat Lab 05/18/25 20:50 Completed Acetaminophen Tab [Tylenol Tab] Med 05/18/25 20:52 Discontinued 650 mg PO X1 ONE levETIRAcetam INJ [Keppra Inj] Med 05/18/25 19:55 Discontinued 1,000 mg IVP X1 ONE Vital Signs Vital signs: Vital Signs Temperature 98.6 F 05/18/25 19:43 Pulse Rate 96 05/18/25 19:43 Respiratory Rate 18 05/18/25 19:43 Blood Pressure 124/80 05/18/25 19:43 Pulse Oximetry (%) 92 L 05/18/25 19:43 Oxygen Delivery Method Room Air 05/18/25 19:43 Discharge Plan Plan Patient Disposition: HOME (Self Care) Patient condition on transfer: Stable Prescriptions/Referrals Prescriptions/Med Rec: No Action atorvastatin 80 mg tablet 80 mg PO QDAY Patient Comments: TAKE 1 TABLET BY MOUTH EVERY DAY carvedilol 6.25 mg tablet 6.25 mg PO BID PRN (Reason: elevated blood pressure) Patient Comments: TAKE 1 TABLET BY MOUTH TWICE A DAY amlodipine 5 mg tablet 5 mg PO QDAY Patient Comments: TAKE 1 TABLET BY MOUTH EVERY DAY baclofen 10 mg tablet 10 mg PO BID Eliquis 5 mg tablet 10 mg PO BID MDD 4 Qty: 28 0RF lacosamide 100 mg tablet 100 mg PO BID 30 Days Qty: 60 2RF divalproex 500 mg tablet extended release 24 hr 1,000 mg PO BID 30 Days Qty: 120 2RF Referrals: Young Anthony MD [Physician, Neurology] - In 1 week Problem List Clinical Impression: Seizure disorder Patient/Caregiver Discharge Instructions Education Materials: Self-Care for Epilepsy Additional Instructions: Continue to take all your antiseizure medications as prescribed follow-up with Dr. Anthony if there is a worsening of symptoms or seizure return the emergency room for reevaluation. Print Language: [place] Stand Alone Forms: Radha Award Info., Patient Portal Info Letter LATRICIA/GEOVANNA Supervising Physician TAVON Supervising Physician: Ramiro Bermudez ENP [facility] Clinical Information Provided by: patient and EMS Medical Records reviewed [facility] and EMS Meds/Rx considered, not ordered None Labs/Rad/Tests considered, not ordered None Chronic Illness/Social Conditions which may negatively complicate care or outcome(s)-explain: CHF/CAD/Cardiac illness Explain: Seizure disorder EKG EKG not done Labs Labs: interpreted by [place] Lab(s) Interpretation(s): CBC shows no acute leukocytosis anemia thrombocytopenia CMP shows no significant electrolyte imbalances other than a glucose of 130, no renal impairment transaminitis or T. bili elevation. Urine is negative for UTI there are 48 RBCs and 18 WBCs but no leukocyte esteras e or bacteria. UDS is negative. Medication Administration(s) Medication Administration History Discontinued Medications Acetaminophen (Acetaminophen 325 Mg Tablet) 650 mg PO X1 ONE Stop: 05/18/25 20:53 Last Admin: 05/18/25 20:56 Dose: 650 mg Documented By: PAULIE Levetiracetam (Levetiracetam Inj 100 Mg/Ml Vial 5ml) 1,000 mg IVP X1 ONE Stop: 05/18/25 19:56 Last Admin: 05/18/25 20:32 Dose: 1,000 mg Documented By: PAULIE
[2025-05-18 20:27] VITALS: BP 142/89; PULSE 86; RESP 21; TEMP 36.8; O2SAT 91
[2025-05-18] MEDS: levETIRAcetam INJ 100 MG/ML VIAL 5ML 1000 MG IVP (20:32)
[2025-05-18 20:41] LABS: Basophils # (Auto) 0.0 Thou/mm3 (0.0-0.2); Basophils % (Auto) 0 % (0-2.5); Eosinophils # (Auto) 0.1 Thou/mm3 (0.0-0.5); Eosinophils % (Auto) 1 % (0-10); Hematocrit 41.2 % (41.0-53.0); Hemoglobin 14.2 g/dL (13.5-16.0); Immature Granulocytes Auto 0.01 Thou/mm3 (0.00-0.00); Lymphocytes # (Auto) 2.2 Thou/mm3 (1.0-4.8); Lymphocytes % (Auto) 33 % (10-50); Mean Corpuscular HGB Conc 34.5 g/dl (31.0-37.0); Mean Corpuscular Hemoglobin 31.5 pg (25.0-35.0); Mean Corpuscular Volume 91 fL (80-100); Monocytes # (Auto) 1.0 Thou/mm3 (0.0-0.8); Monocytes % (Auto) 15 % (0-12); Neutrophils # (Auto) 3.3 Thou/mm3 (1.8-7.7); Neutrophils % (Auto) 51 % (37-80); Nucleated Red Blood Cell # 0.00 Thou/mm3 (0.00-0.00); Nucleated Red Blood Cell % 0 /100 WBC (0); Platelet Count 213 Thou/mm3 (140-440); RDW Standard Deviation 45.2 fL (35.1-43.9); Red Blood Count 4.51 Miln/mm3 (4.50-5.90); White Blood Count 6.5 Thou/mm3 (3.8-10.6)
[2025-05-18] MEDS: ACETAMINOPHEN 325 MG TABLET 650 MG PO (20:56)
[2025-05-18 20:57] LABS: Collection Type, Urine Clean Catch; Squamous Epithelial Cell,Urine 0 /hpf (0-5)
[2025-05-18 21:01] LABS: Alanine Aminotransferase 18 U/L (10-49); Albumin, Serum 4.3 gm/dL (3.4-4.8); Albumin/Globulin Ratio 1.6 (1.2-2.2); Alkaline Phosphatase 67 U/L (46-116); Anion Gap 9 (7-16); Aspartate Amino Transferase 25 U/L (0-34); BUN/Creatinine Ratio 12 Ratio (12-20); Bilirubin,Total 0.4 mg/dL (0.3-1.2); Blood Urea Nitrogen 13 mg/dL (9-23); Calcium 9.2 mg/dL (8.3-10.6); Calcium (Corrected) 9.2 mg/dL (8.5-10.1); Carbon Dioxide 23.7 mMol/L (20.0-31.0); Chloride 107 mMol/L (98-107); Creatinine (Component) 1.1 mg/dL (0.6-1.3); Estimated Creatinine Clearance 297.0 mL/min (>60); Globulin 2.7 gm/dL (2.3-3.5); Glucose 130 mg/dL (74-106); Osmolality,Calculated 281 (275-295); Potassium 4.2 mMol/L (3.4-5.1); Sodium 140 mMol/L (136-145); Total Protein 7.0 gm/dL (5.7-8.2); eGFR > 60 See Note
[2025-05-18 21:10] LABS: Bilirubin,Urine Negative (Negative); Blood,Urine 2+ (Negative); Clarity,Urine Clear (Clear/Hazy); Color,Urine Lt-Yellow (Lt Yel-Yel); Glucose, Urine Negative (Negative); Ketones,Urine Negative (Negative); Leukocyte Esterase,Urine Negative (Negative); Nitrite,Urine Negative (Negative); PH,Urine 6.5 (5.0-7.0); Protein,Urine Negative (Neg - Trace); RBC,Urine 48 /hpf (0-3); Specific Gravity,Urine 1.012 (1.001-1.035); Urobilinogen,Urine Negative mg/dL (0.0-1.0); WBC,Urine 18 /hpf (0-5)
[2025-05-18 21:16] LABS: Amphetamine/Methamp Scrn,U Negative (Negative); Barbiturate Screen,Urine Negative (Negative); Benzodiazepines Screen,Urine Negative (Negative); Benzoylecgonine Screen, Ur Negative (Negative); Fentanyl Screen,Urine Negative (Negative); Opiate Screen,Urine Negative (Negative); THC Screen,Urine Negative (Negative)
== END 2025-05-18 21:50 | disposition home or self-care (01) ==
LOC: SERX 21:45
PROVIDERS: Registered Nurse General Practice; Emergency Provider Emergency Medicine
DX: R56.9 Unspecified convulsions (principal)
CPT/HCPCS: 36415; 80053; 80307; 81001; 85025; 96374; 99283; J1953; A9270

== ENCOUNTER → 2025-06-15 | Outpatient (CLI) | payer MEDICARE, MEDICAID, SELFPAY ==
--- NOTE | 2025-06-15 12:30 | XR_ITS ---
Examination: CT lung low dose screening, without contrast. 2-D sagittal reconstructions. 2-D coronal reconstructions. 3-D reconstructions. Date and time of exam: June 15, 2025, 12:56 p.m. INDICATIONS: Nicotine dependence, smoking history several years CTDI: vol (mGy): 13.4 DLP: (mGycm): 502 Technique: Multiple 1.25 mm axial sections of the thorax without intravenous contrast have been obtained. 2-D sagittal and coronal reconstructions have been obtained. 3-D reconstructions have been obtained. Low dose protocols were performed. One or more of the following dose reduction techniques were used; automated exposure control, adjustment of the mA and/or KV according to patient size, use of iterative reconstruction technique. Findings: Thoracic aortic calcification no aneurysmal dilatation Pulmonary artery segments are not enlarged. Heavy calcification left anterior descending and left circumflex right coronary arteries No paratracheal tracheobronchial or bronchopulmonary adenopathy COPD with areas of airspace destruction 4 mm pulmonary nodule posterior right lung No pneumonia or pulmonary edema Liver cyst Spleen not enlarged Gallstones No pancreatic or adrenal mass IMPRESSION: COPD 4 mm pulmonary nodule posterior right lung, with the studies baseline recommend continued 6-month follow-up CT chest without contrast
== END | disposition home or self-care (01) ==
PROVIDERS: PCP Family Medicine; Referring Provider Nurse Practitioner Family; Visit Provider Nurse Practitioner Family
DX: J44.9 Chronic obstructive pulmonary disease, unspecified (principal); R91.1 Solitary pulmonary nodule
CPT/HCPCS: 71271

== ENCOUNTER → 2025-07-06 | Outpatient (CLI) | payer MEDICARE, MEDICAID, SELFPAY ==
--- NOTE | 2025-07-06 08:45 | XR_ITS ---
EXAMINATION: Ultrasound abdominal aorta TECHNIQUE: Grayscale sonographic images of abdominal aorta Date and time: July 06, 2025, 0913 hours INDICATIONS: Nicotine dependence, smoking history 20 years. FINDINGS: Proximal aorta 2.6 cm mid aorta 2.3 cm distal aorta 1.8 cm right iliac 1.1 cm Left iliac 1.0 cm IMPRESSION: Negative for abdominal aortic aneurysm
== END | disposition home or self-care (01) ==
PROVIDERS: PCP Nurse Practitioner Family; Referring Provider Nurse Practitioner Family; Visit Provider Nurse Practitioner Family
DX: F17.211 Nicotine dependence, cigarettes, in remission (principal)
CPT/HCPCS: 76770

== ENCOUNTER → 2025-07-08 | Outpatient (CLI) | payer MEDICARE, MEDICAID, SELFPAY ==
[2025-07-08 09:54] LABS: Collection Type, Urine Clean Catch; Squamous Epithelial Cell,Urine 0 /hpf (0-5)
[2025-07-08 10:12] LABS: Basophils # (Auto) 0.0 Thou/mm3 (0.0-0.2); Basophils % (Auto) 0 % (0-2.5); Eosinophils # (Auto) 0.0 Thou/mm3 (0.0-0.5); Eosinophils % (Auto) 1 % (0-10); Hematocrit 42.5 % (41.0-53.0); Hemoglobin 14.8 g/dL (13.5-16.0); Immature Granulocytes Auto 0.01 Thou/mm3 (0.00-0.00); Lymphocytes # (Auto) 1.8 Thou/mm3 (1.0-4.8); Lymphocytes % (Auto) 31 % (10-50); Mean Corpuscular HGB Conc 34.8 g/dl (31.0-37.0); Mean Corpuscular Hemoglobin 31.6 pg (25.0-35.0); Mean Corpuscular Volume 91 fL (80-100); Monocytes # (Auto) 1.0 Thou/mm3 (0.0-0.8); Monocytes % (Auto) 17 % (0-12); Neutrophils # (Auto) 3.0 Thou/mm3 (1.8-7.7); Neutrophils % (Auto) 51 % (37-80); Nucleated Red Blood Cell # 0.00 Thou/mm3 (0.00-0.00); Nucleated Red Blood Cell % 0 /100 WBC (0); Platelet Count 202 Thou/mm3 (140-440); RDW Standard Deviation 44.6 fL (35.1-43.9); Red Blood Count 4.68 Miln/mm3 (4.50-5.90); White Blood Count 5.9 Thou/mm3 (3.8-10.6)
[2025-07-08 10:18] LABS: Bilirubin,Urine Negative (Negative); Blood,Urine 1+ (Negative); Clarity,Urine Clear (Clear/Hazy); Color,Urine Yellow (Lt Yel-Yel); Culture Indicated,Urine Not Indicated; Glucose, Urine Negative (Negative); Ketones,Urine Negative (Negative); Leukocyte Esterase,Urine Negative (Negative); Nitrite,Urine Negative (Negative); PH,Urine 6.0 (5.0-7.0); Protein,Urine Trace (Neg - Trace); RBC,Urine 10 /hpf (0-3); Specific Gravity,Urine 1.031 (1.001-1.035); Urobilinogen,Urine Negative mg/dL (0.0-1.0); WBC,Urine 1 /hpf (0-5)
[2025-07-08 10:40] LABS: Alanine Aminotransferase 19 U/L (10-49); Albumin, Serum 4.6 gm/dL (3.4-4.8); Albumin/Globulin Ratio 1.8 (1.2-2.2); Alkaline Phosphatase 53 U/L (46-116); Anion Gap 11 (7-16); Aspartate Amino Transferase 25 U/L (0-34); BUN/Creatinine Ratio 15 Ratio (12-20); Bilirubin,Total 0.7 mg/dL (0.3-1.2); Blood Urea Nitrogen 15 mg/dL (9-23); Calcium 9.0 mg/dL (8.3-10.6); Calcium (Corrected) 9.0 mg/dL (8.5-10.1); Carbon Dioxide 23.6 mMol/L (20.0-31.0); Chloride 108 mMol/L (98-107); Creatinine (Component) 1.0 mg/dL (0.6-1.3); Globulin 2.6 gm/dL (2.3-3.5); Glucose 84 mg/dL (74-106); Osmolality,Calculated 284 (275-295); Potassium 4.2 mMol/L (3.4-5.1); Sodium 143 mMol/L (136-145); Total Protein 7.2 gm/dL (5.7-8.2); eGFR > 60 See Note
[2025-07-13 07:11] LABS: Valporic Acid (Depak)* 89.7 mg/L (50.0-100.0)
== END | disposition home or self-care (01) ==
PROVIDERS: PCP Family Medicine; Referring Provider Psychiatry & Neurology Neurology; Visit Provider Psychiatry & Neurology Neurology
DX: R41.3 Other amnesia (principal); G40.909 Epilepsy, unspecified, not intractable, without status epilepticus
CPT/HCPCS: 36415; 80053; 80164; 81001; 85025